=== PATIENT | male | born 1970 | race Caucasian/White ===

== ENCOUNTER 2017-01-06 09:51 | Day surgery (SDC) | payer MEDICAID ==
[~2017-01-06 09:51] MED LIST: Metoclopramide 10 MG/2 ML SDV IV PRN; Sodium Chloride 0.9% 1,000 ML IV SCH; Sodium Chloride 0.9% 10 ML Syringe FLUSH PRN
[2017-01-06] MEDS ORDERED: Propofol 1,000 MG/100 ML SDV ONE (12:30)
[2017-01-06 13:22] VITALS: BP 111/62
--- NOTE | 2017-01-06 16:41 | OR ---
DATE OF OPERATION: 01/06/2017 PREOPERATIVE DIAGNOSIS: Screening colonoscopy, increased risk for colon cancer. POSTOPERATIVE DIAGNOSIS: Normal colonoscopy. OPERATION: Screening colonoscopy, increased risk. COMPLICATIONS: None. DRAINS: None. SPECIMENS: None. ESTIMATED BLOOD LOSS: Zero. ANESTHESIA: General propofol anesthesia. INDICATION: Mr. Leach is a 46-year-old gentleman whose previous colonoscopy was 5 years ago. He has an increased risk for colon cancer as well as colonic polyps. The above- mentioned procedure was explained. The risks, benefits, and complications were explained. The patient understood and agreed and he was brought to the operating room. DESCRIPTION OF PROCEDURE: The patient was brought to the operating room and placed in left lateral decubitus position on the operating room table. Satisfactory general propofol anesthesia was administered. We began by performing a rectal examination, which was within normal limits. I then placed the endoscope by finger introduction into the rectum and subsequently advanced to the level of the cecum. The cecum was identified by the appendiceal orifice as well as the ileocecal valve and cecal strap. Next, careful evaluation of the mucosa was performed on withdrawal. There were no telangiectasias, no polyps, no neoplastic growths, and no diverticula. I then performed a retroflexion maneuver in the rectum, which was within normal limits. The colon was then decompressed and the endoscope was withdrawn. The prep was good and the views after lavage were good. There were no complications. Instrument count was correct. The patient was awoken in the OR and taken to the PACU for recovery. Recommend followup colonoscopy in 5 years. VERÓNICA /[id number]
== END 2017-01-06 13:26 | disposition home or self-care (01) ==
LOC: LB.SDS 09:51
PROVIDERS: ATTEND Surgery
DX: Z12.11 Encounter for screening for malignant neoplasm of colon (principal); Z80.0 Family history of malignant neoplasm of digestive organs
CPT/HCPCS: 45378; 96374; J7040; J7050; J3490

== ENCOUNTER 2017-02-20 15:42 | Inpatient (IN) | payer MEDICAID ==
[2017-02-20] MEDS ORDERED: THIAMINE IV ONE ×3 (16:10)
[2017-02-20] MEDS ORDERED: Magnesium Oxide 400 MG Tab PO ONE (16:10)
[2017-02-20] MEDS ORDERED: MVI IV ONE ×3 (16:10)
[2017-02-20] MEDS ORDERED: VITAMIN K IV ONE ×3 (16:10)
[2017-02-20] MEDS ORDERED: [UNRECOGNIZED DRUG - OTHER] IV ONE ×3 (16:10)
--- NOTE | 2017-02-20 16:14 | PCM.HP ---
H&P History of Present Illness - General Date of Service: 02/20/17 Admit Problem/Dx: Admission Diagnosis/Problem Admission Diagnosis/Problem Alcohol withdrawal syndrome Source of Information: Patient History Limitations: Reports: No Limitations - History of Present Illness Initial Comments - Free Text/Narative: This is a 46yo M who has been drinking heavily the past week but has been sober for over 1.5yrs. He would like to stop drinking but is starting to have symptoms when he stops drinking. He complaints of severe abdominal pain at this time but improves with alcohol for the past week. He has been under a lot of stress and has been working 2 jobs. He recently quit one job as it caused his rent to increase. He was paying child support for the past year and only the past few months ago went to court to reverse the decision as the kids live with him and he pays for everything. He is stressed about covering all his bills as his son has a trip with school and he has rent to pay. Duration of Symptoms: Reports: Intermittent, Waxing/Waning Location: Reports: Abdomen Quality: Reports: Ache, Stabbing Severity: Severe Improves with: Reports: Other (alcohol consumption) - Related Data Allergies/Adverse Reactions: Allergies Allergy/AdvReac Type Severity Reaction Status Date / Time No Known Allergies Allergy Verified 02/20/17 16:20 Home Medications: Home Meds Ibuprofen [Advil] 1 tab PO BID PRN 08/23/14 [History] Lisinopril/Hydrochlorothiazide [Lisinopril-Hctz 10-12.5 mg Tab] 1 each PO DAILY 08/24/15 [History] traMADol HCl [Tramadol HCl] 50 mg PO Q12HR PRN 08/24/15 [History] Past Medical History HEENT History: Reports: Other (See Below) Other HEENT History: High Blood pressure,Alcholic,Shoulder pain, Cardiovascular History: Reports: Hypertension Musculoskeletal History: Reports: Other (See Below) Other Musculoskeletal History: Right shoulder surgery and pain - Past Surgical History HEENT Surgical History: Reports: Other (See Below) Social & Family History - Family History GI: Reports: Other (See Below) Other GI Family History: significant colon hx - Tobacco Use Smoking Status *Q: Never Smoker - Alcohol Use Days Per Week of Alcohol Use: 7 Number of Drinks Per Day: 5 Total Drinks Per Week: 35 - Recreational Drug Use Recreational Drug Use: No H&P Review of Systems - Review of Systems: Review Of Systems: See Below General: Reports: No Symptoms HEENT: Reports: Other (right tooth pain) Pulmonary: Reports: No Symptoms Cardiovascular: Reports: No Symptoms Gastrointestinal: Reports: Abdominal Pain Genitourinary: Reports: No Symptoms Musculoskeletal: Reports: No Symptoms Skin: Reports: No Symptoms Psychiatric: Reports: Anxiety, Agitation Exam - Exam Exam: See Below - Vital Signs Weight: 112.945 kg - Exam General: Alert, Oriented, Cooperative HEENT: PERRLA, Conjunctiva Clear, EACs Clear, EOMI, Other (caries - right upper tooth pain) Neck: Supple, Trachea Midline Lungs: Clear to Auscultation, Normal Respiratory Effort Cardiovascular: Regular Rate, Regular Rhythm Abdomen: Normal Bowel Sounds, Soft, Pelvis Stable, Tenderness (mid epigastric) Extremities: Normal Inspection - Patient Data Result Diagrams: 02/20/17 16:24 02/20/17 16:24 *Q Meaningful Use (ADM) - VTE *Q VTE Criteria *Q: - Stroke *Q Stroke Criteria *Q: - AMI *Q AMI Criteria *Q: - Problem List (1) Nausea & vomiting SNOMED Code(s): 91598906 ICD Code: R11.2 - NAUSEA WITH VOMITING, UNSPECIFIED Status: Acute Priority: High Current Visit: Yes (2) Alcohol withdrawal SNOMED Code(s): 414877421 ICD Code: F10.239 - ALCOHOL DEPENDENCE WITH WITHDRAWAL, UNSPECIFIED Status : Acute Priority: High Current Visit: Yes (3) Abscessed tooth SNOMED Code(s): 945752091 ICD Code: K04.7 - PERIAPICAL ABSCESS WITHOUT SINUS Status: Acute Priority : High Current Visit: Yes (4) Alcohol abuse SNOMED Code(s): 16410665 ICD Code: F10.10 - ALCOHOL ABUSE, UNCOMPLICATED Status: Chronic Priority : High Current Visit: Yes Problem List Initiated/Reviewed/Updated: Yes Orders Last 24hrs: Active Orders 24 hr Category Date Time Status Patient Status [ADT] Routine ADT 02/20/17 16:09 Ordered CIWAA Assessment [RC] Q1H Care 02/20/17 16:10 Ordered Cardiac Monitoring [RC] .As Directed Care 02/20/17 16:10 Ordered Notify Provider [RC] PRN Care 02/20/17 16:10 Ordered Oxygen Therapy [RC] PRN Care 02/20/17 16:09 Ordered Regular Diet [DIET] Diet 02/20/17 Dinner Ordered CBC WITH AUTO DIFF [HEME] Stat Lab 02/20/17 16:10 Ordered COMPREHENSIVE METABOLIC PN,CMP [CHEM] Stat Lab 02/20/17 16:10 Ordered LORazepam [Ativan] Med 02/20/17 16:15 Ordered See Protocol IV ASDIRECTED MVI, Adult with Vitamin K [Infuvite Adult] 10 ml Med 02/20/17 16:10 Ordered Thiamine [Vitamin B-1] 100 mg D5%-0.9% NaCl w/ KCl 40 meq [D5 NS with 40 mEq KCl] 1, 000 ml IV ONETIME Magnesium Oxide Med 02/20/17 16:10 Once 400 mg PO ONETIME ONE Pantoprazole [ProTONIX IV] Med 02/20/17 16:15 Ordered 40 mg IV DAILY Sodium Chloride 0.9% [Saline Flush] Med 02/20/17 16:10 Ordered 10 ml FLUSH ASDIRECTED PRN Peripheral IV Insertion Adult [OM.PC] Routine Oth 02/20/17 16:10 Ordered Resuscitation Status Routine Resus Stat 02/20/17 16:09 Ordered Assessment/Plan Comment:: Patient placed on alcohol withdrawl protocol. Counseled patient. Discussed tooth abscess and will place on rocephin IV 1g. Telemetry and monitoring per CIWAA protocol.
[2017-02-20] MEDS: Sodium Chloride 0.9% 10 ML Syringe FLUSH PRN (16:43)
[2017-02-20] MEDS: Pantoprazole 40 MG Vial IV SCH (16:43)
[2017-02-20] MEDS: Ondansetron 4 MG/2 ML SDV ONE ×2 (17:38→17:39)
[2017-02-20] MEDS: Ondansetron 4 MG/2 ML SDV IVPUSH SCH ×2 (17:39→21:36)
[2017-02-20] MEDS ORDERED: cefTRIAXone 1 GM in Sodium Chloride 0.9% 50 ML IV ONE (17:50)
[2017-02-20] MEDS ORDERED: LORazepam 1 MG Tab ONE (21:43)
[2017-02-20] MEDS: LORazepam 2 MG/ML MDV IV SCH (21:46)
[2017-02-20] MEDS: Sodium Chloride 0.45% 1,000 ML IV SCH (22:15)
[2017-02-21] MEDS ORDERED: LORazepam 1 MG Tab ONE (01:24)
[2017-02-21] MEDS: Ondansetron 4 MG/2 ML SDV IVPUSH SCH ×4 (04:44→13:25)
[2017-02-21] MEDS: LORazepam 2 MG/ML MDV IV SCH (04:45)
[2017-02-21] MEDS: Sodium Chloride 0.45% 1,000 ML IV SCH (04:45)
[2017-02-21] MEDS: Pantoprazole 40 MG Vial IV SCH (07:36)
[2017-02-21] MEDS ORDERED: VITAMIN K IV SCH ×3 (08:00)
[2017-02-21] MEDS ORDERED: 1/2 NS W IV SCH ×3 (08:00)
[2017-02-21] MEDS ORDERED: THIAMINE IV SCH ×3 (08:00)
[2017-02-21] MEDS ORDERED: KCL IV SCH ×3 (08:00)
[2017-02-21] MEDS ORDERED: MVI IV SCH ×3 (08:00)
[2017-02-21] MEDS ORDERED: D5 IV SCH ×3 (08:00)
[2017-02-21] MEDS ORDERED: Aluminum Hydroxide/Magnesium Hydroxide/Simethicone Susp 30 ML Cup PO ONE (08:47)
[2017-02-21] MEDS: Aluminum Hydroxide/Magnesium Hydroxide/Simethicone Susp 30 ML Cup PO PRN ×2 (08:54→13:33)
[2017-02-21] MEDS: Sodium Chloride 0.9% 10 ML Syringe FLUSH PRN (09:43)
[2017-02-21 12:05] VITALS: BP 135/90
[2017-02-21] MEDS ORDERED: Ondansetron 4 MG Tab.DIS ONE (13:21)
[2017-02-21] MEDS ORDERED: Ondansetron 4 MG Tab.DIS PO PRN (13:22)
--- NOTE | 2017-02-21 15:02 | PCM.DCSUM1 ---
Discharge Summary - Discharge Data Discharge Date: 02/21/17 Discharge Disposition: Home, Self-Care 01 Condition: Good - Discharge Diagnosis/Problem(s) (1) Nausea & vomiting SNOMED Code(s): 48647430 ICD Code: R11.2 - NAUSEA WITH VOMITING, UNSPECIFIED Status: Acute Priority: High Current Visit: Yes (2) Alcohol withdrawal SNOMED Code(s): 006019064 ICD Code: F10.239 - ALCOHOL DEPENDENCE WITH WITHDRAWAL, UNSPECIFIED Status : Acute Priority: High Current Visit: Yes (3) Abscessed tooth SNOMED Code(s): 370961270 ICD Code: K04.7 - PERIAPICAL ABSCESS WITHOUT SINUS Status: Acute Priority : High Current Visit: Yes (4) Alcohol abuse SNOMED Code(s): 96262837 ICD Code: F10.10 - ALCOHOL ABUSE, UNCOMPLICATED Status: Chronic Priority : High Current Visit: Yes - Patient Instructions Diet: Usual Diet as Tolerated Driving: May Drive Today Showering/Bathing: May Shower Notify Provider of: Nausea and/or Vomiting - Discharge Plan Home Medications: Home Meds Ibuprofen [Advil] 1 tab PO BID PRN 08/23/14 [History] Lisinopril/Hydrochlorothiazide [Lisinopril-Hctz 10-12.5 mg Tab] 1 each PO DAILY 08/24/15 [History] traMADol HCl [Tramadol HCl] 50 mg PO Q12HR PRN 08/24/15 [History] Patient Handouts: Alcohol Withdrawal - Discharge Summary/Plan Comment Discharge Summary/Plan Comment: Counseled on alcohol cessation, support groups, AA and family support. Discussed follow up in clinic for EGD scheduling and discussion. Patient sent home with nexium, Rx sent of Zofran and Ativan sent to [facility]. Patient agrees with alcohol cessation and follow up. - Patient Data Vitals - Most Recent: Last Vital Signs Temp 36.8 C 02/21/17 12:00 Pulse 78 02/21/17 12:00 Resp 15 02/21/17 12:00 BP 135/90 02/21/17 12:00 Pulse Ox 98 02/21/17 12:00 Weight - Most Recent: 113.398 kg I&O - Last 24 hours: Intake & Output 02/21/17 02/21/17 02/21/17 06:59 14:59 22:59 Intake Total 1060 Balance 1060 Lab Results - Last 24 hrs: Laboratory Results - last 24 hr 02/20/17 02/20/17 02/20/17 Range/Units 16:24 16:24 16:24 WBC 9.0 (4.0-11.0) K/uL RBC 4.91 (4.50-6.50) M/uL Hgb 14.6 (13.0-18.0) g/dL Hct 41.7 (40.0-54.0) % MCV 85 (76-96) fL MCH 29.7 (27.0-32.0) pg MCHC 35.0 (31.0-35.0) g/dL RDW 13.5 (11.0-16.0) % Plt Count 225 (150-400) K/uL MPV 9.5 (6.0-10.0) fL Neut % (Auto) 64.2 (45.0-70.0) % Lymph % (Auto) 27.1 (20.0-40.0) % [place] % (Auto) 7.3 (3.0-10.0) % Eos % (Auto) 1.0 (1.0-5.0) % Baso % (Auto) 0.4 (0.0-0.5) % Neut # (Auto) 5.79 (2.00-7.50) K/uL Lymph # (Auto) 2.44 (1.50-4.00) K/uL [place] # (Auto) 0.66 (0.20-0.80) K/uL Eos # (Auto) 0.09 (0.04-0.40) K/uL Baso # (Auto) 0.04 (0.02-0.10) K/uL Sodium 147 H (136-145) mmol/L Potassium 4.1 (3.5-5.1) mmol/L Chloride 108 H (98-107) mmol/L Carbon Dioxide 30.6 (21.0-32.0) mmol/L Anion Gap 12.5 (5.0-15.0) mmol/L BUN 12 (8-26) mg/dL Creatinine 1.00 (0.70-1.30) mg/dL Est Cr Clr Drug Dosing 99.35 mL/min Estimated GFR (MDRD) > 60 (>60) MLS/MIN BUN/Creatinine Ratio 12.0 (6-25) Glucose 111 H (74-100) mg/dL Calcium 8.3 L (8.5-10.1) mg/dL Total Bilirubin 0.6 (0.0-1.0) mg/dL AST 24 (15-37) U/L ALT 34 (12-78) U/L Alkaline Phosphatase 67 (46-116) U/L Total Protein 7.2 (6.4-8.2) g/dL Albumin 3.5 (3.4-5.0) g/dL Globulin 3.7 (2.2-4.2) g/dL Albumin/Globulin Ratio 0.9 (0.8-2.0) Ethyl Alcohol 196.0 H (0.0-0.0) mg/dL Med Orders - Current: Current Medications Al Hydroxide/Mg Hydroxide (Mag-Al Plus) 30 ml PO Q4H PRN PRN Reason: Abdominal Pain Last Admin: 02/21/17 13:33 Dose: 30 ml Multivitamins/Minerals 10 ml/Thiamine HCl 100 mg/ Potassium Chloride/Dextrose/ Sod Cl 1,011 mls @ 250 mls/hr IV DAILY [facility] Last Admin: 02/21/17 08:58 Dose: 250 mls/hr Sodium Chloride (Sodium Chloride 0.45%) 1,000 mls @ 150 mls/hr IV ASDIRECTED [facility] Last Admin: 02/21/17 04:45 Dose: 150 mls/hr Lorazepam (Ativan) 0 mg IV ASDIRECTED TD PRN Reason: Protocol Last Admin: 02/21/17 04:45 Dose: 1 mg Ondansetron HCl (Zofran) 4 mg IVPUSH Q4H [facility] Last Admin: 02/21/17 13:25 Dose: Not Given Ondansetron HCl (Zofran Odt) 4 mg PO Q4H PRN PRN Reason: Nausea/Vomiting Last Admin: 02/21/17 13:25 Dose: 4 mg Pantoprazole Sodium (Protonix Iv) 40 mg IV DAILY [facility] Last Admin: 02/21/17 07:36 Dose: 40 mg Sodium Chloride (Saline Flush) 10 ml FLUSH ASDIRECTED PRN PRN Reason: Keep Vein Open Last Admin: 02/21/17 09:43 Dose: 10 ml Discontinued Medications Al Hydroxide/Mg Hydroxide (Mag-Al Plus) 30 ml PO ONETIME ONE Stop: 02/21/17 08:48 Last Admin: 02/21/17 12:06 Dose: Not Given Multivitamins/Minerals 10 ml/Thiamine HCl 100 mg/ Potassium Chloride/Dextrose/ Sod Cl 1,011 mls @ 250 mls/hr IV ONETIME ONE Stop: 02/20/17 16:12 Last Admin: 02/20/17 16:58 Dose: 250 mls/hr Ceftriaxone Sodium 1 gm/ (Sodium Chloride) 50 mls @ 200 mls/hr IV ONETIME ONE Stop: 02/20/17 18:04 Last Admin: 02/20/17 19:01 Dose: 200 mls/hr Lorazepam (Ativan) Confirm Administered Dose 1 mg .ROUTE .STK-MED ONE Stop: 02/20/17 21:44 Last Admin: 02/20/17 21:49 Dose: Not Given Lorazepam (Ativan) Confirm Administered Dose 1 mg .ROUTE .STK-MED ONE Stop: 02/21/17 01:25 Last Admin: 02/21/17 04:44 Dose: Not Given Magnesium Oxide (Magnesium Oxide) 400 mg PO ONETIME ONE Stop: 02/20/17 16:11 Last Admin: 02/20/17 16:43 Dose: 400 mg Ondansetron HCl (Zofran) Confirm Administered Dose 4 mg .ROUTE .STK-MED ONE Stop: 02/20/17 17:30 Last Admin: 02/20/17 17:39 Dose: Not Given Ondansetron HCl (Zofran Odt) Confirm Administered Dose 4 mg .ROUTE .STK-MED ONE Stop: 02/21/17 13:22 Last Admin: 02/21/17 13:31 Dose: Not Given *Q Meaningful Use (DIS) - VTE *Q VTE Criteria *Q: - Stroke *Q Stroke Criteria *Q: - AMI *Q AMI Criteria *Q:
== END 2017-02-21 15:25 | disposition home or self-care (01) | DRG 775 ==
LOC: UNDOADMIN 15:42 → LB.MS 15:42
PROVIDERS: ADMIT Family Medicine; ATTEND Family Medicine
DX: F10.239 Alcohol dependence with withdrawal, unspecified (principal); Y90.6 Blood alcohol level of 120-199 mg/100 ml; K04.7 Periapical abscess without sinus; I10 Essential (primary) hypertension; R11.2 Nausea with vomiting, unspecified
CPT/HCPCS: 36415; 80053; 85025; A9270-GY; C9113; G0480; J0696; J2060; J2405; J3411; J3480; J3490; J7050

== ENCOUNTER 2017-03-29 14:24 | Inpatient (IN) | payer MEDICAID ==
[2017-03-29] MEDS ORDERED: GI Cocktail Oral Solution 30 ML PO ONE (14:59)
[2017-03-29] MEDS ORDERED: Ondansetron 4 MG Tab.DIS PO PRN (15:00)
[2017-03-29] MEDS ORDERED: MVI, Adult with Vitamin K 10 ML, Thiamine 100 MG, Folic Acid 1 MG, Magnesium Sulfate 3 ... IV SCH ×5 (15:00)
[2017-03-29] MEDS ORDERED: Pantoprazole 40 MG Vial IVPUSH SCH (15:15)
--- NOTE | 2017-03-29 15:20 | PCM.HP ---
H&P History of Present Illness - General Date of Service: 03/29/17 Admit Problem/Dx: Admission Diagnosis/Problem Admission Diagnosis/Problem Gastrointestinal hemorrhage Source of Information: Patient History Limitations: Reports: No Limitations, Intoxication - History of Present Illness Initial Comments - Free Text/Narative: This is a 47yo M who presented to the clinic for severe epigastric pain, vomiting, and hematemesis. He had started drinking the past few days due to stress and the ex . Patient states his daughter called his ex- because he has been drinking. Patient denies any chest pain or sob and has had hematemesis for the past 12 hours intermittently and mild streaks in his vomitus. He has right lower teeth pain and unable to get to a dentist as his insurance only approves of dentists out of town. Onset of Symptoms: Reports: Gradual Duration of Symptoms: Reports: Day(s): Quality: Reports: Same as Previous Episode Severity: Moderate Associated Symptoms: Reports: Nausea/Vomiting Right Abdomen Pain Score (Numeric/FACES): 10 - Related Data Allergies/Adverse Reactions: Allergies Allergy/AdvReac Type Severity Reaction Status Date / Time No Known Allergies Allergy Verified 02/20/17 16:20 Home Medications: Home Meds Ibuprofen [Advil] 1 tab PO BID PRN 08/23/14 [History] Lisinopril/Hydrochlorothiazide [Lisinopril-Hctz 10-12.5 mg Tab] 1 each PO DAILY 08/24/15 [History] traMADol HCl [Tramadol HCl] 50 mg PO Q12HR PRN 08/24/15 [History] Past Medical History HEENT History: Reports: Other (See Below) Other HEENT History: High Blood pressure,Alcholic,Shoulder pain, Cardiovascular History: Reports: Hypertension Gastrointestinal History: Reports: GERD Musculoskeletal History: Reports: Other (See Below) Other Musculoskeletal History: Right shoulder surgery and pain Psychiatric History: Reports: Addiction Endocrine/Metabolic History: Reports: Other (See Below) Other Endocrine/Metabolic History: states "borderline diabetic" - Past Surgical History HEENT Surgical History: Reports: Other (See Below) GI Surgical History: Reports: Appendectomy, Colonoscopy Social & Family History - Family History GI: Reports: Other (See Below) Other GI Family History: significant colon hx Psychiatric: Reports: Other (See Below) Other Psychiatric Family History: alcoholism - Tobacco Use Smoking Status *Q: Never Smoker - Caffeine Use Caffeine Use: Reports: Soda - Alcohol Use Days Per Week of Alcohol Use: 7 Number of Drinks Per Day: 10 Total Drinks Per Week: 70 - Recreational Drug Use Recreational Drug Use: No H&P Review of Systems - Review of Systems: Review Of Systems: ROS reveals no pertinent complaints other than HPI. Exam - Exam Exam: See Below - Vital Signs Weight: 113.398 kg - Exam General: Alert, Oriented, Other (intoxicated) HEENT: PERRLA, Conjunctiva Clear, EOMI, Pupils Reactive (sluggish) Neck: Supple, Trachea Midline Lungs: Clear to Auscultation, Normal Respiratory Effort Cardiovascular: Regular Rhythm, Tachycardia GI/Abdominal Exam: Abnormal Bowel Sounds (slightly hyperactive) Back Exam: Normal Inspection Extremities: Normal Inspection Peripheral Pulses: 2+: Dorsalis Pedis (L), Dorsalis Pedis (R) Skin: Warm, Dry, Intact Neurological: Cranial Nerves Intact, Reflexes Equal Bilateral - Patient Data Lab Results Last 24 hrs: Laboratory Results - last 24 hr 03/29/17 Range/Units 14:56 WBC 15.8 H D (4.0-11.0) K/uL RBC 5.67 (4.50-6.50) M/uL Hgb 17.0 (13.0-18.0) g/dL Hct 47.8 (40.0-54.0) % MCV 84 (76-96) fL MCH 30.0 (27.0-32.0) pg MCHC 35.6 H (31.0-35.0) g/dL RDW 13.8 (11.0-16.0) % Plt Count 328 D (150-400) K/uL MPV 9.7 (6.0-10.0) fL Neut % (Auto) 70.8 H (45.0-70.0) % Lymph % (Auto) 20.5 (20.0-40.0) % Will % (Auto) 8.2 (3.0-10.0) % Eos % (Auto) 0.3 L (1.0-5.0) % Baso % (Auto) 0.2 (0.0-0.5) % Neut # (Auto) 11.19 H (2.00-7.50) K/uL Lymph # (Auto) 3.24 (1.50-4.00) K/uL Will # (Auto) 1.29 H (0.20-0.80) K/uL Eos # (Auto) 0.04 (0.04-0.40) K/uL Baso # (Auto) 0.03 (0.02-0.10) K/uL Result Diagrams: 03/29/17 14:56 *Q Meaningful Use (ADM) - VTE *Q VTE Criteria *Q: - Stroke *Q Stroke Criteria *Q: - AMI *Q AMI Criteria *Q: - Problem List (1) Abscessed tooth SNOMED Code(s): 138538246 ICD Code: K04.7 - PERIAPICAL ABSCESS WITHOUT SINUS Status: Acute Priority : High Current Visit: Yes (2) Alcohol withdrawal SNOMED Code(s): 970823258 ICD Code: F10.239 - ALCOHOL DEPENDENCE WITH WITHDRAWAL, UNSPECIFIED Status : Acute Priority: High Current Visit: Yes (3) Hematemesis SNOMED Code(s): 9937059 ICD Code: K92.0 - HEMATEMESIS Status: Acute Priority: High Current Visit: Yes Onset Date: 08/23/14 Problem Details: 08/23/14 - Diarrhea, Vomiting, Melena, Hematemesis, Erosive esophagitis. (4) Nausea & vomiting SNOMED Code(s): 15818715 ICD Code: R11.2 - NAUSEA WITH VOMITING, UNSPECIFIED Status: Acute Priority: High Current Visit: Yes Qualifiers: Vomiting type: hematemesis Qualified Code(s): K92.0 - Hematemesis; R11.0 - Nausea (5) Alcohol abuse SNOMED Code(s): 29502906 ICD Code: F10.10 - ALCOHOL ABUSE, UNCOMPLICATED Status: Chronic Priority : High Current Visit: Yes Problem List Initiated/Reviewed/Updated: Yes Orders Last 24hrs: Active Orders 24 hr Category Date Time Status Patient Status [ADT] Routine ADT 03/29/17 14:57 Ordered Notify Provider [RC] PRN Care 03/29/17 15:00 Ordered Oxygen Therapy [RC] PRN Care 03/29/17 14:57 Ordered Vital Signs [RC] Q4H Care 03/29/17 14:57 Ordered Heart Healthy Diet [DIET] Diet 03/29/17 Dinner Ordered ALANINE AMINOTRANSFERASE,ALT [CHEM] Routine Lab 03/29/17 14:56 Ordered ALKALINE PHOSPHATASE [CHEM] Routine Lab 03/29/17 14:56 Ordered ASPARTATE AMNIOTRANSFERASE,AST [CHEM] Routine Lab 03/29/17 14:56 Ordered BASIC METABOLIC PANEL,BMP [CHEM] Stat Lab 03/29/17 14:56 Ordered H.PYLORI ANTIGEN, STOOL [OP] Routine Lab 03/29/17 15:14 Uncollected LIPASE [CHEM] Routine Lab 03/29/17 14:56 Ordered Amoxicillin/Clavulanate K [Augmentin 875 MG/125 MG] Med 03/29/17 20:00 Ordered 1 tab PO Q12HR LORazepam [Ativan] Med 03/29/17 15:00 Ordered See Protocol PO ASDIRECTED MVI, Adult with Vitamin K [Infuvite Adult] 10 ml Med 03/29/17 15:00 Ordered Thiamine [Vitamin B-1] 100 mg Folic Acid 1 mg Magnesium Sulfate [Magnesium Sulfate 50%] 3 gm Sodium Chloride 0.9% [Normal Saline] 1,000 ml IV ASDIRECTED Ondansetron [Zofran ODT] Med 03/29/17 15:00 Ordered 4 mg PO Q4H PRN Pantoprazole [ProTONIX IV] Med 03/29/17 15:15 Active 80 mg IVPUSH ASDIRECTED Sodium Chloride 0.9% [Saline Flush] Med 03/29/17 15:00 Ordered 10 ml FLUSH ASDIRECTED PRN oxyCODONE Med 03/29/17 14:57 Ordered 5 mg PO Q4H PRN Peripheral IV Insertion Adult [OM.PC] Urgent Oth 03/29/17 15:00 Ordered Medication Orders Amoxicillin/Clavulanate Potassium (Augmentin 875 Mg/125 Mg) 1 tab PO Q12HR TD Stop: 04/08/17 20:01 Multivitamins/Minerals 10 ml/Thiamine HCl 100 mg/ Folic Acid 1 mg/ Magnesium Sulfate 3 gm/ Sodium Chloride 1,017.2 mls @ 100 mls/hr IV ASDIRECTED TD Lorazepam (Ativan) 0 mg PO ASDIRECTED TD PRN Reason: Protocol Ondansetron HCl (Zofran Odt) 4 mg PO Q4H PRN PRN Reason: Nausea/Vomiting Oxycodone HCl (Oxycodone) 5 mg PO Q4H PRN PRN Reason: Pain Pantoprazole Sodium (Protonix Iv) 80 mg IVPUSH ASDIRECTED TD Stop: 03/29/17 16:00 Sodium Chloride (Saline Flush) 10 ml FLUSH ASDIRECTED PRN PRN Reason: Keep Vein Open Assessment/Plan Comment:: Patient admitted from clinic. Placed on telemetry. CIWAA protocol. Augmentin for tooth abscess. Oxycodone for breakthrough pain. F/u labs. GI cocktail and prophylactic protonix. Banana Bag. Patient counseled on medications and gentle hydration while monitoring for further hematemesis and zofran for nausea.
[2017-03-29] MEDS: oxyCODONE 5 MG Tab PO PRN ×2 (15:43→20:13)
[2017-03-29] MEDS: Amoxicillin/Clavulanate K 875-125 MG Tab PO SCH ×2 (15:53→20:11)
[2017-03-29] MEDS: LORazepam 1 MG Tab PO SCH ×3 (17:46→23:15)
[2017-03-29] MEDS ORDERED: GI Cocktail Oral Solution 30 ML PO PRN (17:57)
[2017-03-30] MEDS: LORazepam 1 MG Tab PO SCH ×2 (03:30→23:01)
[2017-03-30] MEDS ORDERED: Octreotide 100 MCG/ML SDV SUBCUT SCH (08:00)
[2017-03-30] MEDS: Amoxicillin/Clavulanate K 875-125 MG Tab PO SCH (08:19)
[2017-03-30] MEDS: oxyCODONE 5 MG Tab PO PRN ×3 (08:27→23:02)
[2017-03-30] MEDS ORDERED: Octreotide 50 MCG/1 ML Amp IVPUSH ONE (11:02)
--- NOTE | 2017-03-30 11:07 | PCM.PN ---
- General Info Date of Service: 03/30/17 Functional Status: Reports: Pain Controlled, Tolerating Diet - Review of Systems General: Reports: No Symptoms HEENT: Reports: No Symptoms Pulmonary: Reports: No Symptoms Cardiovascular: Reports: No Symptoms Gastrointestinal: Reports: Abdominal Pain, Decreased Appetite Genitourinary: Reports: No Symptoms Musculoskeletal: Reports: No Symptoms Skin: Reports: No Symptoms Neurological: Reports: Tremors Psychiatric: Reports: Anxiety - Patient Data Vitals - Most Recent: Last Vital Signs Temp 36.2 C 03/30/17 11:00 Pulse 91 03/30/17 11:00 Resp 15 03/30/17 11:00 BP 135/93 H 03/30/17 11:00 Pulse Ox 96 03/30/17 11:00 Weight - Most Recent: 113.398 kg I&O - Last 24 Hours: Intake & Output 03/29/17 03/30/17 03/30/17 22:59 06:59 14:59 Intake Total 1120 Output Total 600 Balance 520 Lab Results Last 24 Hours: Laboratory Results - last 24 hr 03/29/17 03/29/17 03/29/17 Range/Units 14:56 14:56 14:56 WBC 15.8 H D (4.0-11.0) K/uL RBC 5.67 (4.50-6.50) M/uL Hgb 17.0 (13.0-18.0) g/dL Hct 47.8 (40.0-54.0) % MCV 84 (76-96) fL MCH 30.0 (27.0-32.0) pg MCHC 35.6 H (31.0-35.0) g/dL RDW 13.8 (11.0-16.0) % Plt Count 328 D (150-400) K/uL MPV 9.7 (6.0-10.0) fL Neut % (Auto) 70.8 H (45.0-70.0) % Lymph % (Auto) 20.5 (20.0-40.0) % Pettis % (Auto) 8.2 (3.0-10.0) % Eos % (Auto) 0.3 L (1.0-5.0) % Baso % (Auto) 0.2 (0.0-0.5) % Neut # (Auto) 11.19 H (2.00-7.50) K/uL Lymph # (Auto) 3.24 (1.50-4.00) K/uL Pettis # (Auto) 1.29 H (0.20-0.80) K/uL Eos # (Auto) 0.04 (0.04-0.40) K/uL Baso # (Auto) 0.03 (0.02-0.10) K/uL Sodium 143 (136-145) mmol/L Potassium 4.1 (3.5-5.1) mmol/L Chloride 103 (98-107) mmol/L Carbon Dioxide 27.8 (21.0-32.0) mmol/L Anion Gap 16.3 H (5.0-15.0) mmol/L BUN 10 (8-26) mg/dL Creatinine 0.97 (0.70-1.30) mg/dL Est Cr Clr Drug Dosing 101.35 mL/min Estimated GFR (MDRD) > 60 (>60) MLS/MIN BUN/Creatinine Ratio 10.3 (6-25) Glucose 145 H D (74-100) mg/dL Calcium 8.8 (8.5-10.1) mg/dL AST 32 (15-37) U/L ALT 52 (12-78) U/L Alkaline Phosphatase 82 (46-116) U/L Lipase 92 D (73-393) U/L /17/17 Range/Units 07:15 WBC 12.2 H D (4.0-11.0) K/uL RBC 4.89 (4.50-6.50) M/uL Hgb 14.9 (13.0-18.0) g/dL Hct 42.3 (40.0-54.0) % MCV 87 (76-96) fL MCH 30.5 (27.0-32.0) pg MCHC 35.2 H (31.0-35.0) g/dL RDW 13.9 (11.0-16.0) % Plt Count 232 D (150-400) K/uL MPV 9.7 (6.0-10.0) fL Neut % (Auto) 69.5 (45.0-70.0) % Lymph % (Auto) 18.5 L (20.0-40.0) % Pettis % (Auto) 10.8 H (3.0-10.0) % Eos % (Auto) 0.7 L (1.0-5.0) % Baso % (Auto) 0.5 (0.0-0.5) % Neut # (Auto) 8.45 H (2.00-7.50) K/uL Lymph # (Auto) 2.25 (1.50-4.00) K/uL Pettis # (Auto) 1.31 H (0.20-0.80) K/uL Eos # (Auto) 0.08 (0.04-0.40) K/uL Baso # (Auto) 0.06 (0.02-0.10) K/uL Sodium (136-145) mmol/L Potassium (3.5-5.1) mmol/L Chloride (98-107) mmol/L Carbon Dioxide (21.0-32.0) mmol/L Anion Gap (5.0-15.0) mmol/L BUN (8-26) mg/dL Creatinine (0.70-1.30) mg/dL Est Cr Clr Drug Dosing mL/min Estimated GFR (MDRD) (>60) MLS/MIN BUN/Creatinine Ratio (6-25) Glucose (74-100) mg/dL Calcium (8.5-10.1) mg/dL AST (15-37) U/L ALT (12-78) U/L Alkaline Phosphatase (46-116) U/L Lipase (73-393) U/L Med Orders - Current: Current Medications Al Hydroxide/Mg Hydroxide (Gi Cocktail) 30 ml PO BID PRN PRN Reason: Abdominal Pain Last Admin: 03/30/17 03:16 Dose: 30 ml Amoxicillin/Clavulanate Potassium (Augmentin 875 Mg/125 Mg) 1 tab PO Q12HR TD Stop: 04/08/17 20:01 Last Admin: 03/30/17 08:19 Dose: 1 tab Multivitamins/Minerals 10 ml/Thiamine HCl 100 mg/ Folic Acid 1 mg/ Magnesium Sulfate 3 gm/ Sodium Chloride 1,017.2 mls @ 100 mls/hr IV ASDIRECTED TD Last Admin: 03/29/17 15:36 Dose: 100 mls/hr Lorazepam (Ativan) 0 mg PO ASDIRECTED TD PRN Reason: Protocol Last Admin: 03/30/17 03:30 Dose: 1 mg Ondansetron HCl (Zofran Odt) 4 mg PO Q4H PRN PRN Reason: Nausea/Vomiting Last Admin: 03/29/17 15:43 Dose: 4 mg Oxycodone HCl (Oxycodone) 5 mg PO Q4H PRN PRN Reason: Pain Last Admin: 03/30/17 08:27 Dose: 5 mg Ranitidine HCl (Zantac) 150 mg PO BID TD Last Admin: 03/30/17 08:19 Dose: 150 mg Sodium Chloride (Saline Flush) 10 ml FLUSH ASDIRECTED PRN PRN Reason: Keep Vein Open Discontinued Medications Al Hydroxide/Mg Hydroxide (Gi Cocktail) 30 ml PO ONETIME ONE Stop: 03/29/17 15:00 Last Admin: 03/29/17 15:53 Dose: 30 ml Pantoprazole Sodium (Protonix Iv) 80 mg IVPUSH ASDIRECTED TD Stop: 03/29/17 16:00 Last Admin: 03/29/17 15:37 Dose: 80 mg - Exam General: Alert, Oriented, Cooperative, Mild Distress HEENT: Pupils Equal, Pupils Reactive Neck: Supple Lungs: Clear to Auscultation, Normal Respiratory Effort Cardiovascular: Regular Rhythm, Tachycardia GI/Abdominal Exam: Abnormal Bowel Sounds (hyperactive) Extremities: Normal Inspection - Problem List & Annotations (1) Abscessed tooth SNOMED Code(s): 029596523 Code(s): K04.7 - PERIAPICAL ABSCESS WITHOUT SINUS Status: Acute Priority : High Current Visit: Yes (2) Alcohol withdrawal SNOMED Code(s): 683508271 Code(s): F10.239 - ALCOHOL DEPENDENCE WITH WITHDRAWAL, UNSPECIFIED Status: Acute Priority: High Current Visit: Yes (3) Hematemesis SNOMED Code(s): 7036164 Code(s): K92.0 - HEMATEMESIS Status: Acute Priority: High Current Visit : Yes Onset Date: 08/23/14 Annotation/Comment:: 08/23/14 - Diarrhea, Vomiting , Melena, Hematemesis, Erosive esophagitis. (4) Nausea & vomiting SNOMED Code(s): 04022592 Code(s): R11.2 - NAUSEA WITH VOMITING, UNSPECIFIED Status: Acute Priority : High Current Visit: Yes Qualifiers: Vomiting type: hematemesis Qualified Code(s): K92.0 - Hematemesis; R11.0 - Nausea (5) Alcohol abuse SNOMED Code(s): 02929141 Code(s): F10.10 - ALCOHOL ABUSE, UNCOMPLICATED Status: Chronic Priority: High Current Visit: Yes (6) Depression SNOMED Code(s): 47377692 Code(s): F32.9 - MAJOR DEPRESSIVE DISORDER, SINGLE EPISODE, UNSPECIFIED Status: Chronic Priority: High Current Visit: Yes Qualifiers: Active/Remission status: currently active Major depression episode severity : moderate - Problem List Review Problem List Initiated/Reviewed/Updated: Yes - My Orders Last 24 Hours: My Active Orders 03/29/17 14:57 Patient Status [ADT] Routine Oxygen Therapy [RC] PRN Vital Signs [RC] Q4H oxyCODONE 5 mg PO Q4H PRN 03/29/17 15:00 Notify Provider [RC] PRN LORazepam [Ativan] See Protocol PO ASDIRECTED MVI, Adult with Vitamin K [Infuvite Adult] 10 ml Thiamine [Vitamin B-1] 100 mg Folic Acid 1 mg Magnesium Sulfate [Magnesium Sulfate 50%] 3 gm Sodium Chloride 0.9% [Normal Saline] 1,000 ml IV ASDIRECTED Ondansetron [Zofran ODT] 4 mg PO Q4H PRN Sodium Chloride 0.9% [Saline Flush] 10 ml FLUSH ASDIRECTED PRN Peripheral IV Insertion Adult [OM.PC] Urgent 03/29/17 15:14 H.PYLORI ANTIGEN, STOOL [OP] Routine 03/29/17 16:00 CULTURE MRSA SURVEY [RM] Routine 03/29/17 16:12 Telemetry Monitoring [Cardiac Monitoring] [RC] .As Directed 03/29/17 17:57 GI Cocktail 30 ml PO BID PRN 03/29/17 18:00 Ranitidine [Zantac] 150 mg PO BID 03/29/17 20:00 Amoxicillin/Clavulanate K [Augmentin 875 MG/125 MG] 1 tab PO Q12HR 03/29/17 Dinner Heart Healthy Diet [DIET] 03/30/17 11:02 Octreotide [SandoSTATIN] 50 mcg IVPUSH BOLUS ONE - Plan Plan:: Patient admitted from clinic. Placed on telemetry. CRISTIWAA protocol. Augmentin for tooth abscess. Oxycodone for breakthrough pain. F/u labs. GI cocktail and prophylactic protonix. Banana Bag. Patient counseled on medications and gentle hydration while monitoring for further hematemesis and zofran for nausea. 03/30 We will continue current management. Discussed Alcohol support and coping skills in length. Discussed use of Octreotide and will start as we now have some in stock. Patient will be started on effexor and monitored. Discussed medication side effects, risks and benefits.
[2017-03-30] MEDS: Sodium Chloride 0.9% 10 ML Syringe FLUSH PRN ×2 (11:11→11:49)
[2017-03-30] MEDS: Aluminum Hydroxide/Magnesium Hydroxide/Simethicone Susp 30 ML Cup PO SCH ×2 (11:13→20:06)
[2017-03-30] MEDS ORDERED: Venlafaxine 37.5 MG Cap.ER PO SCH (11:15)
[2017-03-30] MEDS: Octreotide 100 MCG/ML SDV SUBCUT SCH ×2 (11:47→20:58)
[2017-03-30] MEDS: Lisinopril 10 MG Tab PO SCH (13:54)
[2017-03-30] MEDS: Venlafaxine 37.5 MG Cap.ER PO SCH (15:24)
[2017-03-30] MEDS ORDERED: Omeprazole 40 MG Cap.CR ONE (15:51)
[2017-03-30] MEDS ORDERED: Amoxicillin 500 MG Cap ONE (15:51)
[2017-03-30] MEDS: Omeprazole 40 MG Cap.CR PO SCH ×2 (15:56→19:11)
[2017-03-30] MEDS: Amoxicillin 500 MG Cap PO SCH ×2 (15:57→19:10)
[2017-03-31] MEDS: Omeprazole 40 MG Cap.CR PO SCH (07:10)
[2017-03-31] MEDS: Aluminum Hydroxide/Magnesium Hydroxide/Simethicone Susp 30 ML Cup PO SCH (09:06)
[2017-03-31] MEDS: Amoxicillin 500 MG Cap PO SCH (09:07)
[2017-03-31] MEDS: Lisinopril 10 MG Tab PO SCH (09:07)
[2017-03-31] MEDS: Octreotide 100 MCG/ML SDV SUBCUT SCH (09:11)
[2017-03-31 09:20] VITALS: BP 122/80
[2017-03-31] MEDS: Venlafaxine 37.5 MG Cap.ER PO SCH (09:20)
--- NOTE | 2017-03-31 11:22 | PCM.DCSUM1 ---
Discharge Summary - Discharge Data Discharge Date: 03/31/17 Discharge Disposition: Home, Self-Care 01 Condition: Good - Discharge Diagnosis/Problem(s) (1) Abscessed tooth SNOMED Code(s): 624019002 ICD Code: K04.7 - PERIAPICAL ABSCESS WITHOUT SINUS Status: Acute Priority : High Current Visit: Yes (2) Alcohol withdrawal SNOMED Code(s): 443539907 ICD Code: F10.239 - ALCOHOL DEPENDENCE WITH WITHDRAWAL, UNSPECIFIED Status : Acute Priority: High Current Visit: Yes (3) Hematemesis SNOMED Code(s): 2464196 ICD Code: K92.0 - HEMATEMESIS Status: Acute Priority: High Current Visit: Yes Onset Date: 08/23/14 Problem Details: 08/23/14 - Diarrhea, Vomiting, Melena, Hematemesis, Erosive esophagitis. (4) Nausea & vomiting SNOMED Code(s): 76202278 ICD Code: R11.2 - NAUSEA WITH VOMITING, UNSPECIFIED Status: Acute Priority: High Current Visit: Yes Qualifiers: Vomiting type: hematemesis Qualified Code(s): K92.0 - Hematemesis; R11.0 - Nausea (5) Alcohol abuse SNOMED Code(s): 46570806 ICD Code: F10.10 - ALCOHOL ABUSE, UNCOMPLICATED Status: Chronic Priority : High Current Visit: Yes (6) Depression SNOMED Code(s): 62306839 ICD Code: F32.9 - MAJOR DEPRESSIVE DISORDER, SINGLE EPISODE, UNSPECIFIED Status: Chronic Priority: High Current Visit: Yes Qualifiers: Active/Remission status: currently active Major depression episode severity : moderate - Patient Instructions Diet: Regular Diet as Tolerated - Discharge Plan Home Medications: Home Meds Lisinopril/Hydrochlorothiazide [Lisinopril-Hctz 10-12.5 mg Tab] 1 each PO DAILY 08/24/15 [History] traMADol HCl [Tramadol HCl] 50 mg PO Q12HR PRN 08/24/15 [History] Amoxicillin [Amoxil] 1,000 mg PO Q12HR cap 03/31/17 [Rx] Clarithromycin [Biaxin] 500 mg PO BID tablet 03/31/17 [Rx] Lisinopril [Prinivil] 10 mg PO DAILY tablet 03/31/17 [Rx] Omeprazole 80 mg PO BIDAC cap.cr 03/31/17 [Rx] Venlafaxine [Effexor XR] 37.5 mg PO WITHBREAKFAST cap.er 03/31/17 [Rx] Patient Handouts: Alcohol Use Disorder, Alcohol Intoxication, [id number], Helicobacter Pylori Antibodies Test, Finding Treatment for Addiction - Discharge Summary/Plan Comment DC Time >30 min.: Yes Discharge Summary/Plan Comment: Discussion of depression and management with initiation of Effexor 37.5mg daily ER and f/u in Clinic. Patient also diagnosed with H. pylori and started triple therapy treatment that was sent to [facility]. Patient counseled on AA and coping skills and close f/u and monitoring. He will have to go to rehab for 30 days and AA and stay sober for 30 days in order to return to work. Patient will check with the city for options and if any issues will contact the clinic for further rehab facilities. F/u this next week in clinic and continue cessation of alcohol and guidance groups, AA and start rehab. Patient is very agreeable and would like to change this dependence problem. - Patient Data Vitals - Most Recent: Last Vital Signs Temp 36.6 C 03/31/17 07:00 Pulse 72 03/31/17 07:00 Resp 16 03/31/17 07:00 BP 122/80 03/31/17 09:07 Pulse Ox 97 03/31/17 07:00 Weight - Most Recent: 113.398 kg MEHNAZ Results - Last 24 hrs: Microbiology 03/30/17 13:30 Helicobacter pylori Antigen - Final Stool / Feces Positive H Pylori Ag 03/29/17 16:00 MRSA Surveillance Culture - Final Nares, Unspecified NO MRSA ISOLATED Med Orders - Current: Current Medications Al Hydroxide/Mg Hydroxide (Gi Cocktail) 30 ml PO BID PRN PRN Reason: Abdominal Pain Last Admin: 03/30/17 03:16 Dose: 30 ml Al Hydroxide/Mg Hydroxide (Mag-Al Plus) 30 ml PO BID TD Last Admin: 03/31/17 09:06 Dose: 30 ml Amoxicillin (Amoxil) 1,000 mg PO Q12HR [facility] Stop: 04/13/17 20:01 Last Admin: 03/31/17 09:07 Dose: 1,000 mg Clarithromycin (Biaxin) 500 mg PO BID TD Stop: 04/13/17 14:46 Last Admin: 03/31/17 09:07 Dose: 500 mg Lisinopril (Prinivil) 10 mg PO DAILY [facility] Last Admin: 03/31/17 09:07 Dose: 10 mg Lorazepam (Ativan) 0 mg PO ASDIRECTED [facility] PRN Reason: Protocol Last Admin: 03/30/17 23:01 Dose: Not Given Octreotide Acetate (Sandostatin) 50 mcg SUBCUT BID [facility] Last Admin: 03/31/17 09:11 Dose: 50 mcg [facility]: 04/13/17 20:01 Last Admin: 03/31/17 07:10 Dose: 80 mg Ondansetron HCl (Zofran Odt) 4 mg PO Q4H PRN PRN Reason: Nausea/Vomiting Last Admin: 03/29/17 15:43 Dose: 4 mg Oxycodone HCl (Oxycodone) 5 mg PO Q4H PRN PRN Reason: Pain Last Admin: 03/30/17 23:02 Dose: 5 mg Ranitidine HCl (Zantac) 150 mg PO BID [facility] Last Admin: 03/31/17 09:16 Dose: 150 mg Sodium Chloride (Saline Flush) 10 ml FLUSH ASDIRECTED PRN PRN Reason: Keep Vein Open Last Admin: 03/30/17 11:49 Dose: 10 ml Venlafaxine HCl (Effexor Xr) 37.5 mg PO WITHBREAKFAST [facility] Last Admin: 03/31/17 09:20 Dose: 37.5 mg Discontinued Medications Al Hydroxide/Mg Hydroxide (Gi Cocktail) 30 ml PO ONETIME ONE Stop: 03/29/17 15:00 Last Admin: 03/29/17 15:53 Dose: 30 ml Amoxicillin (Amoxil) Confirm Administered Dose 1,000 mg .ROUTE .STK-MED ONE Stop: 03/30/17 15:52 Last Admin: 03/30/17 15:59 Dose: Not Given Amoxicillin/Clavulanate Potassium (Augmentin 875 Mg/125 Mg) 1 tab PO Q12HR [facility] Stop: 04/08/17 20:01 Last Admin: 03/30/17 08:19 Dose: 1 tab Multivitamins/Minerals 10 ml/Thiamine HCl 100 mg/ Folic Acid 1 mg/ Magnesium Sulfate 3 gm/ Sodium Chloride 1,017.2 mls @ 100 mls/hr IV ASDIRECTED [facility] Last Admin: 03/29/17 15:36 Dose: 100 mls/hr Octreotide Acetate (Sandostatin) 50 mcg IVPUSH BOLUS ONE Stop: 03/30/17 11:03 Last Admin: 03/30/17 11:46 Dose: 50 mcg Octreotide Acetate (Sandostatin) 50 mcg SUBCUT DAILY [facility] Stop: 03/30/17 11:30 Last Admin: 03/30/17 11:47 Dose: Not Given Omeprazole (Omeprazole) Confirm Administered Dose 80 mg .ROUTE .STK-MED ONE Stop: 03/30/17 15:52 Last Admin: 03/30/17 16:00 Dose: Not Given Pantoprazole Sodium (Protonix Iv) 80 mg IVPUSH ASDIRECTED [facility] Stop: 03/29/17 16:00 Last Admin: 03/29/17 15:37 Dose: 80 mg Venlafaxine HCl (Effexor Xr) 37.5 mg PO DAILY [facility] Last Admin: 03/30/17 11:18 Dose: 37.5 mg *Q Meaningful Use (DIS) - VTE *Q VTE Criteria *Q: - Stroke *Q Stroke Criteria *Q: - AMI *Q AMI Criteria *Q:
== END 2017-03-31 11:18 | disposition home or self-care (01) | DRG 253 ==
LOC: UNDOADMIN 14:24 → LB.MS 14:24
PROVIDERS: ADMIT Family Medicine; ATTEND Family Medicine
DX: K92.0 Hematemesis (principal); F10.239 Alcohol dependence with withdrawal, unspecified; K04.7 Periapical abscess without sinus; F32.9 Major depressive disorder, single episode, unspecified; I10 Essential (primary) hypertension; K21.9 Gastro-esophageal reflux disease without esophagitis; R73.03 Prediabetes; Z79.899 Other long term (current) drug therapy
CPT/HCPCS: 36415; 80048; 83690; 84075; 84450; 84460; 85025; 87338; A9270-GY; C9113; J2354; J3411; J3475; J3490; J7040; J7050

== ENCOUNTER 2018-12-10 04:51 | Observation (INO) | payer BC ==
[2018-12-10] MEDS ORDERED: LORazepam 2 MG/ML SDV IVPUSH ONE (05:18)
[2018-12-10] MEDS ORDERED: Ondansetron 4 MG/2 ML SDV IVPUSH ONE (05:21)
[2018-12-10] MEDS ORDERED: MVI, Adult with Vitamin K 10 ML, Thiamine 100 MG, Folic Acid 1 MG, Magnesium Sulfate 3 ... IV SCH ×5 (05:30)
[2018-12-10] MEDS ORDERED: Sodium Chloride 0.9% 1,000 ML IV SCH (05:34)
[2018-12-10] MEDS ORDERED: Pantoprazole 40 MG Vial IVPUSH ONE (06:17)
[2018-12-10] MEDS: LORazepam 2 MG/ML SDV IVPUSH PRN ×5 (06:30→22:33)
--- NOTE | 2018-12-10 09:46 | PCM.HP ---
H&P History of Present Illness - General Date of Service: 12/10/18 Admit Problem/Dx: Admission Diagnosis/Problem Admission Diagnosis/Problem Alcohol dependence with withdrawal with perceptual disturbance - History of Present Illness Initial Comments - Free Text/Narative: This is a 48yo M admitted by Ladarius Hilario for alcohol withdrawal. He has been drinking 1 litre of hard alcohol a day for the past week. He [facility] due to drinking. He states he feels worsening depression and has not been on his depression meds for the past few months. He has been sober prior to this for 5-6 months. He has some abdominal tenderness but states his nausea and vomiting has improved. Duration of Symptoms: Reports: Day(s):, Getting Worse Location: Reports: Generalized - Related Data Allergies/Adverse Reactions: Allergies Allergy/AdvReac Type Severity Reaction Status Date / Time No Known Allergies Allergy Verified 12/10/18 05:40 Home Medications: Home Meds Lisinopril/Hydrochlorothiazide [Lisinopril-Hctz 10-12.5 mg Tab] 1 each PO BEDTIME 08/24/15 [History] Venlafaxine [Effexor XR] 37.5 mg PO BEDTIME 04/19/18 [History] Esomeprazole [NexIUM] 40 mg PO DAILY 12/10/18 [History] Ondansetron [Zofran ODT] 4 mg PO Q6H PRN 12/10/18 [History] Past Medical History HEENT History: Reports: Other (See Below) Other HEENT History: High Blood pressure, ETOH ,Shoulder pain, Cardiovascular History: Reports: Hypertension Gastrointestinal History: Reports: GERD Musculoskeletal History: Reports: Other (See Below) Other Musculoskeletal History: Right shoulder surgery and pain Psychiatric History: Reports: Addiction, Anxiety, Depression Endocrine/Metabolic History: Reports: Other (See Below) Other Endocrine/Metabolic History: states "borderline diabetic" - Infectious Disease History Infectious Disease History: Reports: Chicken Pox - Past Surgical History HEENT Surgical History: Reports: Other (See Below) Other HEENT Surgeries/Procedures: Append.,Right shoulder surgery, GI Surgical History: Reports: Appendectomy, Colonoscopy Musculoskeletal Surgical History: Reports: Shoulder Surgery Other Musculoskeletal Surgeries/Procedures:: Right shoulder SAD/DCR 2010 Social & Family History - Family History Family Medical History: Noncontributory GI: Reports: Other (See Below) Other GI Family History: significant colon hx Psychiatric: Reports: Other (See Below) Other Psychiatric Family History: alcoholism - Tobacco Use Smoking Status *Q: Never Smoker Second Hand Smoke Exposure: No - Caffeine Use Caffeine Use: Reports: Coffee - Alcohol Use Days Per Week of Alcohol Use: 7 Number of Drinks Per Day: 20 Total Drinks Per Week: 140 Date of Last Drink: 12/09/18 Time of Last Drink: 15:00 - Recreational Drug Use Recreational Drug Use: No H&P Review of Systems - Review of Systems: Review Of Systems: ROS reveals no pertinent complaints other than HPI. Exam - Exam Exam: See Below - Vital Signs Vital Signs: Last Vital Signs Temp 36.9 C 12/10/18 08:14 Pulse 112 H 12/10/18 08:14 Resp 16 12/10/18 08:14 BP 145/100 H 12/10/18 08:14 Pulse Ox 98 12/10/18 08:14 Weight: 108.862 kg - Exam General: Alert, Oriented, Cooperative, Moderate Distress HEENT: PERRLA, Conjunctiva Clear, EACs Clear, EOMI Neck: Supple, Trachea Midline Lungs: Clear to Auscultation, Normal Respiratory Effort Cardiovascular: Regular Rhythm, Tachycardia GI/Abdominal Exam: Abnormal Bowel Sounds (hyperactive) Back Exam: Normal Inspection Extremities: Normal Inspection - Patient Data Lab Results Last 24 hrs: Laboratory Results - last 24 hr 12/10/18 12/10/18 12/10/18 Range/Units 05:35 05:35 05:35 WBC 9.6 (4.0-11.0) K/uL RBC 5.21 (4.50-6.50) M/uL Hgb 15.4 (13.0-18.0) g/dL Hct 44.1 (40.0-54.0) % MCV 85 (76-96) fL MCH 29.6 (27.0-32.0) pg MCHC 34.9 (31.0-35.0) g/dL RDW 13.0 (11.0-16.0) % Plt Count 258 (150-400) K/uL MPV 9.4 (6.0-10.0) fL Neut % (Auto) 71.0 H (45.0-70.0) % Lymph % (Auto) 19.9 L (20.0-40.0) % Pettis % (Auto) 8.2 (3.0-10.0) % Eos % (Auto) 0.4 L (1.0-5.0) % Baso % (Auto) 0.5 (0.0-0.5) % Neut # (Auto) 6.79 (2.00-7.50) K/uL Lymph # (Auto) 1.91 (1.50-4.00) K/uL Pettis # (Auto) 0.79 (0.20-0.80) K/uL Eos # (Auto) 0.04 (0.04-0.40) K/uL Baso # (Auto) 0.05 (0.02-0.10) K/uL Sodium 141 (136-145) mmol/L Potassium 3.5 (3.5-5.1) mmol/L Chloride 97 L (98-107) mmol/L Carbon Dioxide 25.1 (21.0-32.0) mmol/L Anion Gap 22.4 H (5.0-15.0) mmol/L BUN 14 D (8-26) mg/dL Creatinine 1.11 D (0.70-1.30) mg/dL Est Cr Clr Drug Dosing 84.95 mL/min Estimated GFR (MDRD) > 60 (>60) MLS/MIN BUN/Creatinine Ratio 12.6 (6-25) Glucose 180 H D (74-100) mg/dL Calcium 7.7 L (8.5-10.1) mg/dL Total Bilirubin 0.6 D (0.0-1.0) mg/dL AST 51 H (15-37) U/L ALT 57 (12-78) U/L Alkaline Phosphatase 72 (46-116) U/L Total Protein 8.2 (6.4-8.2) g/dL Albumin 3.9 (3.4-5.0) g/dL Globulin 4.3 H (2.2-4.2) g/dL Albumin/Globulin Ratio 0.9 (0.8-2.0) Ethyl Alcohol 164.0 H (0.0-0.0) mg/dL Result Diagrams: 12/10/18 05:35 12/10/18 05:35 - Problem List (1) Alcohol withdrawal SNOMED Code(s): 384859393 ICD Code: F10.239 - ALCOHOL DEPENDENCE WITH WITHDRAWAL, UNSPECIFIED Status : Acute Priority: High Current Visit: Yes (2) Nausea & vomiting SNOMED Code(s): 72121345 ICD Code: R11.2 - NAUSEA WITH VOMITING, UNSPECIFIED Status: Acute Priority: High Current Visit: Yes Qualifiers: Vomiting type: hematemesis Qualified Code(s): K92.0 - Hematemesis; R11.0 - Nausea (3) Depression SNOMED Code(s): 79670912 ICD Code: F32.9 - MAJOR DEPRESSIVE DISORDER, SINGLE EPISODE, UNSPECIFIED Status: Chronic Priority: High Current Visit: Yes Qualifiers: Active/Remission status: currently active Major depression episode severity : moderate Problem List Initiated/Reviewed/Updated: Yes Orders Last 24hrs: Active Orders 24 hr Category Date Time Status CIWAA Assessment [RC] Q1H Care 12/10/18 05:57 Active Vital Signs [RC] Q2H Care 12/10/18 06:14 Active Clear Liquid Diet [DIET] Diet 12/10/18 Lunch Ordered DRUG SCREEN, URINE [URCHEM] Stat Lab 12/10/18 05:29 Ordered LORazepam [Ativan] Med 12/10/18 05:59 Active See Protocol IVPUSH Q4H PRN MVI, Adult with Vitamin K [Infuvite Adult] 10 ml Med 12/10/18 05:30 Active Thiamine [Vitamin B-1] 100 mg Folic Acid 1 mg Magnesium Sulfate [Magnesium Sulfate 50%] 3 gm Sodium Chloride 0.9% [Normal Saline] 1,000 ml IV ASDIRECTED Sodium Chloride 0.9% [Normal Saline] 1,000 ml Med 12/10/18 05:34 Active IV ASDIRECTED Resuscitation Status Routine Resus Stat 12/10/18 06:14 Ordered Medication Orders Multivitamins/Minerals 10 ml/Thiamine HCl 100 mg/ Folic Acid 1 mg/ Magnesium Sulfate 3 gm/ Sodium Chloride 1,017.2 mls @ 250 mls/hr IV ASDIRECTED TD Last Admin: 12/10/18 07:41 Dose: 250 mls/hr Sodium Chloride (Normal Saline) 1,000 mls @ 999 mls/hr IV ASDIRECTED TD Last Admin: 12/10/18 05:34 Dose: 999 mls/hr Lorazepam (Ativan) 0 mg IVPUSH Q4H PRN; Protocol PRN Reason: Withdrawal Symptoms Last Admin: 12/10/18 06:30 Dose: 2 mg Assessment/Plan Comment:: Patient refused a detox center. We will continue CIWAA protocol at this time.
--- NOTE | 2018-12-10 11:33 | ER ---
HISTORY OF PRESENT ILLNESS: A 48-year-old male here with complaints of alcohol abuse. He states he drank a liter of vodka or more for the last 6 days. He quit drinking yesterday. He finally got to the point where he knew he had to quit. The patient has not been feeling well. He is shaky. He has been nauseated and has vomited several times since yesterday. He states his abdomen is sore and somewhat tender especially in the upper right quadrant. The patient has not been running a fever. He states he has not been vomiting blood. PAST MEDICAL HISTORY: Does include alcohol abuse, depression, and hypertension. MEDICATIONS: The patient states he is not using any of his current prescription medications and has not for a while. OBJECTIVE: GENERAL APPEARANCE: The patient is awake, he is quiet. He is pleasant. He is talkative. No respiratory distress. VITAL SIGNS: Reviewed. Blood pressure is 154/100, he is afebrile, pulse is 118, respirations 20, O2 sats 95%. HEENT: Ears, TMs are dull. Nares are patent. Oral mucous membranes are dry in appearance. Tonsils are not enlarged or injected. Pharynx not inflamed. NECK: Supple. LUNGS: Clear. CARDIAC: Heart sounds are distinct. S1, S2 present. No murmurs noted. Regular rate. ABDOMEN: Soft. There is tenderness in the upper right quadrant with palpation and guarding. Bowel sounds are present. SKIN: Warm and dry. LABORATORY DATA: CBC is unremarkable. Comprehensive metabolic panel looks okay. His AST is only slightly elevated at 51. Kidney function is normal. EtOH is 0.164. DIAGNOSIS: Alcohol abuse with acute withdrawal symptoms. TREATMENT PLAN: An IV was started. The patient was given Zofran 8 mg IV and Ativan 2 mg IV. The patient noted significant improvement within about 10-15 minutes. A liter of IV fluid was started as well. We will bolus 1 liter in. The patient will then be admitted to observation where we will follow him for the day, giving him more IV fluids with a banana bag. Ativan per CRISTITXA protocol and continuing to give other meds as needed. I will transfer the patient to Dr. Ying's care within a couple of hours as my shift will be ending. CRS/MODL /[id number]
--- NOTE | 2018-12-10 11:39 | HP ---
This is an admission note to observation. The patient was admitted through the emergency room for alcohol abuse with acute alcohol withdrawal symptoms. The patient was given IV fluids in the emergency room plus Zofran and Ativan. This did seem to control his symptoms fairly well. Lab work is back and CBC is reasonably normal. Neutrophils are just slightly elevated. Comprehensive metabolic panel shows an AST of 51, otherwise, unremarkable. EtOH is 0.164. The patient will be admitted for further IV fluids with a banana bag. He will be monitored per [facility] protocol. He will get Protonix IV and the patient will be monitored for the day. At this time, the patient is pleasant. He is compliant with treatment measures. He is grateful for being here and he has been through this process before. PAST MEDICAL HISTORY: Includes hypertension, depression, alcohol abuse. MEDICATIONS: The patient has not been taking any of his prescription meds lately, stating it has been as long as 6 months since he has taken some of them. OBJECTIVE: GENERAL APPEARANCE: The patient is awake and alert, talkative, pleasant. HEENT: Oral mucous membranes are dry. Tonsils are not enlarged or injected. Pharynx not inflamed. NECK: Supple. LUNGS: Clear. CARDIAC: Heart sounds distinct without murmurs. ABDOMEN: Soft. He does have upper right quadrant tenderness with palpation. SKIN: Warm and dry. ASSESSMENT AND PLAN: I will refer the patient's care to Dr. Ying who will be coming on this morning. The patient tells me that Dr. Ying is his primary care provider. CRS/MODL
[2018-12-10] MEDS: Sodium Chloride 0.9% 1,000 ML IV SCH ×2 (11:46→12:33)
[2018-12-10] MEDS ORDERED: Lisinopril 10 MG Tab ONE (13:39)
[2018-12-10] MEDS ORDERED: Hydrochlorothiazide 12.5 MG Cap ONE (13:40)
[2018-12-10] MEDS: Hydrochlorothiazide 12.5 MG Cap PO SCH (13:45)
[2018-12-10] MEDS: Lisinopril 10 MG Tab PO SCH (13:45)
[2018-12-10] MEDS: Calcium Carbonate 500 MG Tab.Chew PO PRN ×2 (13:49→17:50)
[2018-12-10] MEDS ORDERED: LORazepam 2 MG/ML SDV ONE (14:18)
[2018-12-11] MEDS: LORazepam 2 MG/ML SDV IVPUSH PRN ×3 (02:10→12:09)
[2018-12-11] MEDS ORDERED: LORazepam 2 MG/ML SDV ONE ×2 (05:31→12:10)
[2018-12-11] MEDS: Hydrochlorothiazide 12.5 MG Cap PO SCH (07:48)
[2018-12-11] MEDS: Lisinopril 10 MG Tab PO SCH (07:48)
[2018-12-11] MEDS: Calcium Carbonate 500 MG Tab.Chew PO PRN ×2 (12:08→20:19)
--- NOTE | 2018-12-11 13:32 | PCM.PN ---
- General Info Date of Service: 12/11/18 Subjective Update: Patient has some tremors and agitation. He states he is feeling a little better. He continues to have some abdominal reflux symptoms and gastritis symptoms. He has a decreased appetite. - Review of Systems General: Denies: Appetite HEENT: Reports: No Symptoms Pulmonary: Reports: No Symptoms Cardiovascular: Reports: No Symptoms Gastrointestinal: Reports: Other (abdominal and epigastric discomfort) Musculoskeletal: Reports: No Symptoms Neurological: Reports: Tremors Psychiatric: Reports: Depression, Anxiety - Patient Data Vitals - Most Recent: Last Vital Signs Temp 36.9 C 12/11/18 12:00 Pulse 116 H 12/11/18 12:00 Resp 20 12/11/18 12:00 BP 150/102 H 12/11/18 12:00 Pulse Ox 95 12/11/18 12:00 Weight - Most Recent: 108.862 kg I&O - Last 24 Hours: Intake & Output 12/10/18 12/11/18 12/11/18 22:59 06:59 14:59 Intake Total 1000 Balance 1000 Michelet Results Last 24 Hours: Microbiology 12/10/18 14:21 MRSA Surveillance Culture - Final Nares, Right NO MRSA ISOLATED Med Orders - Current: Current Medications Calcium Carbonate/Glycine (Tums) 500 mg PO TID PRN PRN Reason: INDEGESTION Last Admin: 12/11/18 12:08 Dose: 500 mg Hydrochlorothiazide (Hydrochlorothiazide) 12.5 mg PO DAILY [facility] Last Admin: 12/11/18 07:48 Dose: 12.5 mg Multivitamins/Minerals 10 ml/Thiamine HCl 100 mg/ Folic Acid 1 mg/ Magnesium Sulfate 3 gm/ Sodium Chloride 1,017.2 mls @ 250 mls/hr IV ASDIRECTED [facility] Last Admin: 12/10/18 07:41 Dose: 250 mls/hr Sodium Chloride (Normal Saline) 1,000 mls @ 125 mls/hr IV ASDIRECTED [facility] Last Admin: 12/10/18 12:33 Dose: 125 mls/hr Lisinopril (Prinivil) 10 mg PO DAILY [facility] Last Admin: 12/11/18 07:48 Dose: 10 mg Lorazepam (Ativan) 0 mg IVPUSH Q4H PRN; Protocol PRN Reason: Withdrawal Symptoms Last Admin: 12/11/18 12:09 Dose: 2 mg Discontinued Medications Heparin Sodium (Porcine) (Heparin Lock Flush 100 Units/Ml) 500 units .ROUTE .STK-MED ONE Stop: 12/10/18 11:06 Hydrochlorothiazide (Hydrochlorothiazide) Confirm Administered Dose 12.5 mg .ROUTE .STK-MED ONE Stop: 12/10/18 13:41 Last Admin: 12/10/18 13:49 Dose: Not Given Sodium Chloride (Normal Saline) 1,000 mls @ 999 mls/hr IV ASDIRECTED TD Last Admin: 12/10/18 05:34 Dose: 999 mls/hr Lisinopril (Prinivil) Confirm Administered Dose 10 mg .ROUTE .STK-MED ONE Stop: 12/10/18 13:40 Last Admin: 12/10/18 13:49 Dose: Not Given Lorazepam (Ativan) 2 mg IVPUSH ONETIME ONE Stop: 12/10/18 05:19 Last Admin: 12/10/18 05:25 Dose: 2 mg Lorazepam (Ativan) Confirm Administered Dose 2 mg .ROUTE .STK-MED ONE Stop: 12/11/18 05:32 Last Admin: 12/11/18 07:48 Dose: Not Given Lorazepam (Ativan) 2 mg .ROUTE .STK-MED ONE Stop: 12/10/18 14:19 Lorazepam (Ativan) Confirm Administered Dose 2 mg .ROUTE .STK-MED ONE Stop: 12/11/18 12:11 Last Admin: 12/11/18 12:18 Dose: Not Given Ondansetron HCl (Zofran) 8 mg IVPUSH ONETIME ONE Stop: 12/10/18 05:22 Last Admin: 12/10/18 05:23 Dose: 8 mg Pantoprazole Sodium (Protonix Iv) 40 mg IVPUSH ONETIME ONE Stop: 12/10/18 06:18 Last Admin: 12/10/18 06:35 Dose: 40 mg - Exam General: Alert, Oriented, Cooperative HEENT: Pupils Equal, Pupils Reactive, Mucous Membr. Moist/Parchment Neck: Supple Lungs: Clear to Auscultation, Normal Respiratory Effort Cardiovascular: Regular Rhythm, Tachycardia GI/Abdominal Exam: Normal Bowel Sounds, Soft, Non-Tender Back Exam: Normal Inspection Extremities: Normal Inspection, Normal Range of Motion, Non-Tender - Problem List & Annotations (1) Alcohol withdrawal SNOMED Code(s): 526724258 Code(s): F10.239 - ALCOHOL DEPENDENCE WITH WITHDRAWAL, UNSPECIFIED Status: Acute Priority: High Current Visit: Yes (2) Nausea & vomiting SNOMED Code(s): 05362639 Code(s): R11.2 - NAUSEA WITH VOMITING, UNSPECIFIED Status: Acute Priority : High Current Visit: Yes Qualifiers: Vomiting type: hematemesis Qualified Code(s): K92.0 - Hematemesis; R11.0 - Nausea (3) Depression SNOMED Code(s): 95533696 Code(s): F32.9 - MAJOR DEPRESSIVE DISORDER, SINGLE EPISODE, UNSPECIFIED Status: Chronic Priority: High Current Visit: Yes Qualifiers: Active/Remission status: currently active Major depression episode severity : moderate - Problem List Review Problem List Initiated/Reviewed/Updated: Yes - My Orders Last 24 Hours: My Active Orders 12/10/18 13:25 Calcium Carbonate [Tums] 500 mg PO TID PRN 12/11/18 08:00 Lisinopril [Prinivil] 10 mg PO DAILY hydroCHLOROthiazide 12.5 mg PO DAILY - Plan Plan:: Patient refused a detox center. We will continue CIWAA protocol at this time. 12/11/18 Patient has plan for AA and prevention of drinking in place. He will contact his sponsor and discuss further with his family for future considerations. We will continue monitoring CIWAA scoring and withdrawal symptoms.
[2018-12-11] MEDS: Ibuprofen 600 MG Tab PO PRN ×2 (13:45→20:18)
[2018-12-11] MEDS ORDERED: LORazepam 1 MG Tab ONE (17:52)
[2018-12-11] MEDS: LORazepam 1 MG Tab PO PRN ×2 (18:00→22:05)
[2018-12-12] MEDS: Hydrochlorothiazide 12.5 MG Cap PO SCH (07:58)
[2018-12-12] MEDS: Lisinopril 10 MG Tab PO SCH (07:58)
[2018-12-12 07:59] VITALS: BP 124/83
--- NOTE | 2018-12-12 09:23 | PCM.DCSUM1 ---
Discharge Summary - Discharge Data Discharge Date: 12/12/18 Discharge Disposition: Home, Self-Care 01 Condition: Fair - Discharge Diagnosis/Problem(s) (1) Alcohol withdrawal SNOMED Code(s): 346850298 ICD Code: F10.239 - ALCOHOL DEPENDENCE WITH WITHDRAWAL, UNSPECIFIED Status : Acute Priority: High Current Visit: Yes (2) Nausea & vomiting SNOMED Code(s): 67399517 ICD Code: R11.2 - NAUSEA WITH VOMITING, UNSPECIFIED Status: Acute Priority: High Current Visit: Yes Qualifiers: Vomiting type: hematemesis Qualified Code(s): K92.0 - Hematemesis; R11.0 - Nausea (3) Depression SNOMED Code(s): 73804093 ICD Code: F32.9 - MAJOR DEPRESSIVE DISORDER, SINGLE EPISODE, UNSPECIFIED Status: Chronic Priority: High Current Visit: Yes Qualifiers: Active/Remission status: currently active Major depression episode severity : moderate - Patient Instructions Diet: Usual Diet as Tolerated Activity: As Tolerated Driving: May Drive Today - Discharge Plan Home Medications: Home Meds Lisinopril/Hydrochlorothiazide [Lisinopril-Hctz 10-12.5 mg Tab] 1 each PO BEDTIME 08/24/15 [History] Venlafaxine [Effexor XR] 37.5 mg PO BEDTIME 04/19/18 [History] Esomeprazole [NexIUM] 40 mg PO DAILY 12/10/18 [History] Ondansetron [Zofran ODT] 4 mg PO Q6H PRN 12/10/18 [History] Patient Handouts: Delirium Tremens, [id number], Alcohol Withdrawal Syndrome, [id number] Forms: ED Department Discharge Referrals: PCP,None [Primary Care Provider] - - Discharge Summary/Plan Comment DC Time >30 min.: No Discharge Summary/Plan Comment: Counseled on discharge. Counseled on plan of care for AA, psychology referral, and f/u in clinic next week. Patient states he will f/u in clinic and discuss with family, supportive friends and come into ER if he needs further assistance. He refuses chemical detox at this time. - Patient Data Vitals - Most Recent: Last Vital Signs Temp 36.4 C 12/12/18 08:00 Pulse 99 12/12/18 08:00 Resp 16 12/12/18 08:00 BP 124/83 12/12/18 08:00 Pulse Ox 97 12/12/18 08:00 Weight - Most Recent: 108.862 kg I&O - Last 24 hours: Intake & Output 12/11/18 12/12/18 12/12/18 22:59 06:59 14:59 Intake Total 600 362 Balance 600 362 MEHNAZ Results - Last 24 hrs: Microbiology 12/10/18 14:21 MRSA Surveillance Culture - Final Nares, Right NO MRSA ISOLATED Med Orders - Current: Current Medications Calcium Carbonate/Glycine (Tums) 500 mg PO TID PRN PRN Reason: INDEGESTION Last Admin: 12/11/18 20:19 Dose: 500 mg Hydrochlorothiazide (Hydrochlorothiazide) 12.5 mg PO DAILY [facility] Last Admin: 12/12/18 07:58 Dose: 12.5 mg Multivitamins/Minerals 10 ml/Thiamine HCl 100 mg/ Folic Acid 1 mg/ Magnesium Sulfate 3 gm/ Sodium Chloride 1,017.2 mls @ 250 mls/hr IV ASDIRECTED [facility] Last Admin: 12/10/18 07:41 Dose: 250 mls/hr Sodium Chloride (Normal Saline) 1,000 mls @ 125 mls/hr IV ASDIRECTED [facility] Last Admin: 12/10/18 12:33 Dose: 125 mls/hr Ibuprofen (Motrin) 600 mg PO Q6H PRN PRN Reason: Pain Last Admin: 12/11/18 20:18 Dose: 600 mg Lisinopril (Prinivil) 10 mg PO DAILY [facility] Last Admin: 12/12/18 07:58 Dose: 10 mg Lorazepam (Ativan) 1 mg PO Q4H PRN PRN Reason: Anxiety Last Admin: 12/11/18 22:05 Dose: 1 mg Discontinued Medications Heparin Sodium (Porcine) (Heparin Lock Flush 100 Units/Ml) 500 units .ROUTE .STK-MED ONE Stop: 12/10/18 11:06 Hydrochlorothiazide (Hydrochlorothiazide) Confirm Administered Dose 12.5 mg .ROUTE .STK-MED ONE Stop: 12/10/18 13:41 Last Admin: 12/10/18 13:49 Dose: Not Given Sodium Chloride (Normal Saline) 1,000 mls @ 999 mls/hr IV ASDIRECTED [facility] Last Admin: 12/10/18 05:34 Dose: 999 mls/hr Lisinopril (Prinivil) Confirm Administered Dose 10 mg .ROUTE .STK-MED ONE Stop: 12/10/18 13:40 Last Admin: 12/10/18 13:49 Dose: Not Given Lorazepam (Ativan) 2 mg IVPUSH ONETIME ONE Stop: 12/10/18 05:19 Last Admin: 12/10/18 05:25 Dose: 2 mg Lorazepam (Ativan) 0 mg IVPUSH Q4H PRN; Protocol PRN Reason: Withdrawal Symptoms Last Admin: 12/11/18 12:09 Dose: 2 mg Lorazepam (Ativan) Confirm Administered Dose 2 mg .ROUTE .STK-MED ONE Stop: 12/11/18 05:32 Last Admin: 12/11/18 07:48 Dose: Not Given Lorazepam (Ativan) 2 mg .ROUTE .STK-MED ONE Stop: 12/10/18 14:19 Lorazepam (Ativan) Confirm Administered Dose 2 mg .ROUTE .STK-MED ONE Stop: 12/11/18 12:11 Last Admin: 12/11/18 12:18 Dose: Not Given Lorazepam (Ativan) Confirm Administered Dose 1 mg .ROUTE .STK-MED ONE Stop: 12/11/18 17:53 Last Admin: 12/11/18 19:17 Dose: Not Given Ondansetron HCl (Zofran) 8 mg IVPUSH ONETIME ONE Stop: 12/10/18 05:22 Last Admin: 12/10/18 05:23 Dose: 8 mg Pantoprazole Sodium (Protonix Iv) 40 mg IVPUSH ONETIME ONE Stop: 12/10/18 06:18 Last Admin: 12/10/18 06:35 Dose: 40 mg
== END 2018-12-12 10:00 | disposition home or self-care (01) ==
LOC: LB.ED 04:51 → LB.MS 06:10
PROVIDERS: ADMIT Physician Assistant; ATTEND Family Medicine
DX: F10.232 Alcohol dependence with withdrawal with perceptual disturbance (principal); F32.9 Major depressive disorder, single episode, unspecified; F41.9 Anxiety disorder, unspecified; I10 Essential (primary) hypertension; K21.9 Gastro-esophageal reflux disease without esophagitis; R73.03 Prediabetes; Z79.899 Other long term (current) drug therapy
CPT/HCPCS: 36415; 80053; 80307; 85025; 96361; 96374; 96375; 96376; 99284-25; A9270-GY; C9113; G0480; J1642; J2060; J2405; J3411; J3475; J3490; J7030

== ENCOUNTER 2019-05-18 04:59 | Observation (INO) | payer MEDICAID ==
[2019-05-18] MEDS ORDERED: Sodium Chloride 0.9% 10 ML Syringe FLUSH PRN (05:44)
[2019-05-18] MEDS: Sodium Chloride 0.9% 1,000 ML IV SCH ×4 (06:00→19:21)
[2019-05-18] MEDS ORDERED: Ondansetron 4 MG/2 ML SDV IVPUSH ONE (06:01)
[2019-05-18] MEDS ORDERED: Aluminum Hydroxide/Magnesium Hydroxide/Simethicone Susp 30 ML Cup PO ONE (06:03)
[2019-05-18] MEDS ORDERED: Ondansetron 4 MG/2 ML SDV ONE (06:12)
[2019-05-18] MEDS: LORazepam 2 MG/ML SDV IVPUSH ONE ×2 (06:12→07:50)
[2019-05-18] MEDS ORDERED: LORazepam 2 MG/ML SDV ONE ×2 (06:13→08:37)
--- NOTE | 2019-05-18 06:56 | EDM.PDOC ---
ED HPI GENERAL MEDICAL PROBLEM - General Chief Complaint: General Stated Complaint: Vomiting, Right Flank Pain Time Seen by Provider: 05/18/19 05:45 Source of Information: Reports: Patient History Limitations: Reports: No Limitations - History of Present Illness INITIAL COMMENTS - FREE TEXT/NARRATIVE: This is a 49yo M here for drinking the past 2 weeks and has now stopped drinking since yesterday. He has started to feel very ill, vomit, with tremors and chest pain. He has had prior alcohol withdrawal episodes. He had been drinking about 1 L daily of hard alcohol. He states that if he had found his other 2 bottles of alcohol he would not have come in. He does understand that he needs assistance and that he is in withdrawal. Onset: Gradual Duration: Day(s):, Week(s):, Getting Worse Severity: Moderate Improves with: Reports: None Worsens with: Reports: None Associated Symptoms: Reports: Chest Pain, Loss of Appetite, Nausea/Vomiting - Related Data Allergies Allergy/AdvReac Type Severity Reaction Status Date / Time No Known Allergies Allergy Verified 05/18/19 05:45 Home Meds: Home Meds Lisinopril/Hydrochlorothiazide [Lisinopril-Hctz 10-12.5 mg Tab] 1 each PO BEDTIME 08/24/15 [History] Venlafaxine [Effexor XR] 37.5 mg PO BEDTIME 04/19/18 [History] Esomeprazole [NexIUM] 40 mg PO DAILY 12/10/18 [History] Ondansetron [Zofran ODT] 4 mg PO Q6H PRN 12/10/18 [History] Past Medical History HEENT History: Reports: Other (See Below) Other HEENT History: High Blood pressure, ETOH ,Shoulder pain, Cardiovascular History: Reports: Hypertension Gastrointestinal History: Reports: GERD Musculoskeletal History: Reports: Other (See Below) Other Musculoskeletal History: Right shoulder surgery and pain Psychiatric History: Reports: Addiction, Anxiety, Depression Endocrine/Metabolic History: Reports: Other (See Below) Other Endocrine/Metabolic History: states "borderline diabetic" - Infectious Disease History Infectious Disease History: Reports: Chicken Pox - Past Surgical History HEENT Surgical History: Reports: Other (See Below) Other HEENT Surgeries/Procedures: Append.,Right shoulder surgery, GI Surgical History: Reports: Appendectomy, Colonoscopy Musculoskeletal Surgical History: Reports: Shoulder Surgery Other Musculoskeletal Surgeries/Procedures:: Right shoulder SAD/DCR 2010 Social & Family History - Family History Family Medical History: Noncontributory GI: Reports: Other (See Below) Other GI Family History: significant colon hx Psychiatric: Reports: Other (See Below) Other Psychiatric Family History: alcoholism - Caffeine Use Caffeine Use: Reports: Coffee ED ROS GENERAL - Review of Systems Review Of Systems: ROS reveals no pertinent complaints other than HPI. ED EXAM, GENERAL - Physical Exam Exam: See Below Exam Limited By: No Limitations General Appearance: Alert, WD/WN, Mild Distress Eye Exam: Bilateral Eye: EOMI, PERRL Ears: Normal External Exam Nose: Normal Inspection Throat/Mouth: Normal Inspection Head: Atraumatic, Normocephalic Neck: Normal Inspection Respiratory/Chest: No Respiratory Distress, Lungs Clear, Normal Breath Sounds Cardiovascular: Normal Peripheral Pulses, Tachycardia Peripheral Pulses: 2+: Dorsalis Pedis (L), Dorsalis Pedis (R) GI/Abdominal: Soft, Tender (epigastric), Abnormal Bowel Sounds (hyperactive) Back Exam: Normal Inspection Extremities: Normal Inspection Neurological: Alert, Oriented, CN II-XII Intact Psychiatric: Depressed Mood, Tearful Skin Exam: Warm, Dry, Intact Course - Vital Signs Last Recorded V/S: Last Vital Signs Temp 36.9 C 05/18/19 05:12 Pulse 139 H 05/18/19 05:12 Resp 20 05/18/19 05:12 BP 134/80 05/18/19 05:12 Pulse Ox 95 05/18/19 05:12 - Orders/Labs/Meds Orders: Active Orders 24 hr Category Date Time Status Patient Status [ADT] Routine ADT 05/18/19 06:47 Ordered Assess Neurological Status [RC] ASDIRECTED Care 05/18/19 06:49 Ordered CIWAA Assessment [RC] Q1H Care 05/18/19 06:49 Ordered EKG Documentation Completion [RC] ASDIRECTED Care 05/18/19 05:43 Active Notify Provider [RC] PRN Care 05/18/19 06:50 Ordered Oxygen Therapy [RC] PRN Care 05/18/19 06:47 Ordered Vital Signs [RC] Q4H Care 05/18/19 06:47 Ordered Regular Diet [DIET] Diet 05/18/19 Breakfast Ordered UA RFX MEHNAZ AND CULT IF INDIC [URIN] Stat Lab 05/18/19 05:43 Ordered LORazepam [Ativan] Med 05/18/19 07:00 Ordered See Protocol PO ASDIRECTED MVI, Adult with Vitamin K [Infuvite Adult] 10 ml Med 05/18/19 07:00 Ordered Thiamine [Vitamin B-1] 100 mg Dextrose 5%-0.45% NaCl [Dextrose 5%-1/2 NS] 1,000 ml IV ONETIME Sodium Chloride 0.9% [Normal Saline] 1,000 ml Med 05/18/19 05:45 Active IV ASDIRECTED Sodium Chloride 0.9% [Saline Flush] Med 05/18/19 05:44 Active 10 ml FLUSH ASDIRECTED PRN ED Alcohol and Substance Abuse Reflex [OM.PC] Click to Oth 05/18/19 06:48 Ordered Edit Peripheral IV Insertion Adult [OM.PC] Routine Oth 05/18/19 05:44 Ordered Seizure Precautions [OM.PC] Routine Oth 05/18/19 06:49 Ordered EKG 12 Lead [EK] Routine Ther 05/18/19 05:43 Ordered Medication Orders Sodium Chloride (Normal Saline) 1,000 mls @ 999 mls/hr IV ASDIRECTED TD Last Admin: 05/18/19 06:00 Dose: 999 mls/hr Sodium Chloride (Saline Flush) 10 ml FLUSH ASDIRECTED PRN PRN Reason: Keep Vein Open Last Admin: 05/18/19 05:50 Dose: 10 ml Labs: Laboratory Tests 05/18/19 05/18/19 05/18/19 Range/Units 05:50 05:50 05:50 WBC 18.2 H D (4.0-11.0) K/uL RBC 5.51 (4.50-6.50) M/uL Hgb 16.9 (13.0-18.0) g/dL Hct 47.8 (40.0-54.0) % MCV 87 (76-96) fL MCH 30.7 (27.0-32.0) pg MCHC 35.4 H (31.0-35.0) g/dL RDW 14.3 (11.0-16.0) % Plt Count 342 (150-400) K/uL MPV 9.4 (6.0-10.0) fL Neut % (Auto) 83.4 H (45.0-70.0) % Lymph % (Auto) 11.2 L (20.0-40.0) % Mcclain % (Auto) 5.2 (3.0-10.0) % Eos % (Auto) 0.0 L (1.0-5.0) % Baso % (Auto) 0.2 (0.0-0.5) % Neut # (Auto) 15.20 H (2.00-7.50) K/uL Lymph # (Auto) 2.04 (1.50-4.00) K/uL Mcclain # (Auto) 0.95 H (0.20-0.80) K/uL Eos # (Auto) 0.00 L (0.04-0.40) K/uL Baso # (Auto) 0.04 (0.02-0.10) K/uL Sodium 142 (136-145) mmol/L Potassium 4.0 (3.5-5.1) mmol/L Chloride 98 (98-107) mmol/L Carbon Dioxide 18.6 L D (21.0-32.0) mmol/L Anion Gap 29.4 H (5.0-15.0) mmol/L BUN 14 (8-26) mg/dL Creatinine 1.16 (0.70-1.30) mg/dL Est Cr Clr Drug Dosing TNP Estimated GFR (MDRD) > 60 (>60) MLS/MIN BUN/Creatinine Ratio 12.1 (6-25) Glucose 127 H (74-100) mg/dL Lactic Acid 9.72 H (0.90-1.70) mmol/L Calcium 8.6 (8.5-10.1) mg/dL Total Bilirubin 0.7 D (0.0-1.0) mg/dL AST 35 (15-37) U/L ALT 33 (12-78) U/L Alkaline Phosphatase 88 (46-116) U/L Troponin I < 0.017 (0.000-0.060) ng/mL Total Protein 8.6 H (6.4-8.2) g/dL Albumin 4.1 (3.4-5.0) g/dL Globulin 4.5 H (2.2-4.2) g/dL Albumin/Globulin Ratio 0.9 (0.8-2.0) Ethyl Alcohol 217.0 H (<3.0) mg/dL Meds: Medications Generic Name Dose Route Start Last Admin Trade Name Freq PRN Reason Stop Dose Admin Sodium Chloride 1,000 mls @ 999 mls/hr 05/18/19 05:45 05/18/19 06:00 Normal Saline IV 999 mls/hr ASDIRECTED TD Administration Sodium Chloride 10 ml 05/18/19 05:44 05/18/19 05:50 Saline Flush FLUSH 10 ml ASDIRECTED PRN Administration Keep Vein Open Discontinued Medications Generic Name Dose Route Start Last Admin Trade Name Freq PRN Reason Stop Dose Admin Al Hydroxide/Mg Hydroxide 30 ml 05/18/19 06:03 05/18/19 06:19 Mag-Al Plus PO 05/18/19 06:04 30 ml ONETIME ONE Administration Lorazepam 1 mg 05/18/19 06:02 05/18/19 06:12 Ativan IVPUSH 05/18/19 06:03 1 mg ONETIME ONE Administration Lorazepam Confirm 05/18/19 06:13 05/18/19 06:19 Ativan Administered 05/18/19 06:14 Not Given Dose 2 mg .ROUTE .STK-MED ONE Ondansetron HCl 4 mg 05/18/19 06:01 05/18/19 06:07 Zofran IVPUSH 05/18/19 06:02 4 mg ONETIME ONE Administration Ondansetron HCl Confirm 05/18/19 06:12 05/18/19 06:10 Zofran Administered 05/18/19 06:13 Not Given Dose 4 mg .ROUTE .STK-MED ONE Departure - Departure Time of Disposition: 07:00 Disposition: Refer to Observation Condition: Fair Clinical Impression: Tachycardia, Tremors of nervous system Alcohol withdrawal Qualifiers: Complication of substance-induced condition: uncomplicated Qualified Code(s): F10.230 - Alcohol dependence with withdrawal, uncomplicated Leukocytosis, unspecified Qualifiers: Leukocytosis type: unspecified Qualified Code(s): D72.829 - Elevated white blood cell count, unspecified Nausea & vomiting Qualifiers: Vomiting type: hematemesis Qualified Code(s): K92.0 - Hematemesis - Discharge Information Referrals: Raul Ying MD [Primary Care Provider] - - Problem List & Annotations (1) Hematemesis SNOMED Code(s): 9006617 Code(s): K92.0 - HEMATEMESIS Status: Acute Priority: High Current Visit : Yes Onset Date: 08/23/14 Annotation/Comment:: 08/23/14 - Diarrhea, Vomiting , Melena, Hematemesis, Erosive esophagitis. (2) Alcohol abuse SNOMED Code(s): 58148098 Code(s): F10.10 - ALCOHOL ABUSE, UNCOMPLICATED Status: Acute Priority: High Current Visit: Yes Onset Date: 05/29/18 (3) Nausea & vomiting SNOMED Code(s): 06645128 Code(s): R11.2 - NAUSEA WITH VOMITING, UNSPECIFIED Status: Acute Priority : High Current Visit: Yes Qualifiers: Vomiting type: hematemesis Qualified Code(s): K92.0 - Hematemesis; R11.0 - Nausea (4) Alcohol withdrawal SNOMED Code(s): 449703009 Code(s): F10.239 - ALCOHOL DEPENDENCE WITH WITHDRAWAL, UNSPECIFIED Status: Acute Priority: High Current Visit: Yes Qualifiers: Complication of substance-induced condition: uncomplicated Qualified Code(s ): F10.230 - Alcohol dependence with withdrawal, uncomplicated (5) Depression SNOMED Code(s): 79361953 Code(s): F32.9 - MAJOR DEPRESSIVE DISORDER, SINGLE EPISODE, UNSPECIFIED Status: Chronic Priority: High Current Visit: Yes Qualifiers: Active/Remission status: currently active Major depression episode severity : moderate (6) Leukocytosis, unspecified SNOMED Code(s): 110476934, 851870475 Code(s): D72.829 - ELEVATED WHITE BLOOD CELL COUNT, UNSPECIFIED Status: Acute Priority: High Current Visit: Yes Qualifiers: Leukocytosis type: unspecified Qualified Code(s): D72.829 - Elevated white blood cell count, unspecified (7) Tachycardia SNOMED Code(s): 5172683 Code(s): R00.0 - TACHYCARDIA, UNSPECIFIED Status: Acute Priority: High Current Visit: Yes (8) Tremors of nervous system SNOMED Code(s): 15885069 Code(s): R25.1 - TREMOR, UNSPECIFIED Status: Acute Priority: High Current Visit: Yes - Problem List Review Problem List Initiated/Reviewed/Updated: Yes - My Orders Last 24 Hours: My Active Orders 05/18/19 05:43 EKG Documentation Completion [RC] ASDIRECTED UA RFX MEHNAZ AND CULT IF INDIC [URIN] Stat EKG 12 Lead [EK] Routine 05/18/19 05:44 Sodium Chloride 0.9% [Saline Flush] 10 ml FLUSH ASDIRECTED PRN Peripheral IV Insertion Adult [OM.PC] Routine 05/18/19 05:45 Sodium Chloride 0.9% [Normal Saline] 1,000 ml IV ASDIRECTED 05/18/19 06:47 Patient Status [ADT] Routine Oxygen Therapy [RC] PRN Vital Signs [RC] Q4H 05/18/19 06:48 ED Alcohol and Substance Abuse Reflex [OM.PC] Click to Edit 05/18/19 06:49 Assess Neurological Status [RC] ASDIRECTED CIWAA Assessment [RC] Q1H Seizure Precautions [OM.PC] Routine 05/18/19 06:50 Notify Provider [RC] PRN 05/18/19 07:00 LORazepam [Ativan] See Protocol PO ASDIRECTED MVI, Adult with Vitamin K [Infuvite Adult] 10 ml Thiamine [Vitamin B-1] 100 mg Dextrose 5%-0.45% NaCl [Dextrose 5%-1/2 NS] 1,000 ml IV ONETIME 05/18/19 Breakfast Regular Diet [DIET] - Assessment/Plan Last 24 Hours: My Active Orders 05/18/19 05:43 EKG Documentation Completion [RC] ASDIRECTED UA RFX MEHNAZ AND CULT IF INDIC [URIN] Stat EKG 12 Lead [EK] Routine 05/18/19 05:44 Sodium Chloride 0.9% [Saline Flush] 10 ml FLUSH ASDIRECTED PRN Peripheral IV Insertion Adult [OM.PC] Routine 05/18/19 05:45 Sodium Chloride 0.9% [Normal Saline] 1,000 ml IV ASDIRECTED 05/18/19 06:47 Patient Status [ADT] Routine Oxygen Therapy [RC] PRN Vital Signs [RC] Q4H 05/18/19 06:48 ED Alcohol and Substance Abuse Reflex [OM.PC] Click to Edit 05/18/19 06:49 Assess Neurological Status [RC] ASDIRECTED CIWAA Assessment [RC] Q1H Seizure Precautions [OM.PC] Routine 05/18/19 06:50 Notify Provider [RC] PRN 05/18/19 07:00 LORazepam [Ativan] See Protocol PO ASDIRECTED MVI, Adult with Vitamin K [Infuvite Adult] 10 ml Thiamine [Vitamin B-1] 100 mg Dextrose 5%-0.45% NaCl [Dextrose 5%-1/2 NS] 1,000 ml IV ONETIME 05/18/19 Breakfast Regular Diet [DIET] Plan: Patient placed in observation for alcohol withdrawal protocol. We will continue close monitoring and CIWAA protocol. Patient counseled extensively and we will f /u labs daily. Placed on telemetry.
[2019-05-18] MEDS ORDERED: MVI IV SCH ×3 (07:00)
[2019-05-18] MEDS ORDERED: THIAMINE IV SCH ×3 (07:00)
[2019-05-18] MEDS ORDERED: VITAMIN K IV SCH ×3 (07:00)
[2019-05-18] MEDS ORDERED: DEXTROSE IV SCH ×3 (07:00)
[2019-05-18] MEDS ORDERED: NACL IV SCH ×3 (07:00)
[2019-05-18] MEDS: Esomeprazole 40 MG Cap PO SCH (08:29)
[2019-05-18] MEDS ORDERED: Lisinopril 10 MG Tab ONE (08:33)
[2019-05-18] MEDS ORDERED: Hydrochlorothiazide 12.5 MG Cap ONE (08:33)
[2019-05-18] MEDS: LORazepam 1 MG Tab PO SCH ×6 (08:50→21:38)
[2019-05-18] MEDS ORDERED: Metoprolol Succinate 25 MG Tab.ER PO ONE (08:59)
[2019-05-18] MEDS ORDERED: Metoprolol Tartrate 25 MG Tab ONE (08:59)
[2019-05-18] MEDS ORDERED: Metoprolol Tartrate 25 MG Tab PO ONE ×2 (09:09→16:17)
[2019-05-18] MEDS ORDERED: Metoprolol Tartrate 5 MG/5 ML SDV ONE (09:24)
[2019-05-18] MEDS ORDERED: Metoprolol Tartrate 5 MG in Sodium Chloride 0.9% 50 ML IV ONE (09:40)
[2019-05-18] MEDS ORDERED: Metoprolol Tartrate 5 MG/5 ML SDV IVPUSH ONE (09:42)
[2019-05-18] MEDS: Ondansetron 4 MG Tab.DIS PO PRN ×3 (13:16→19:37)
[2019-05-18] MEDS: Venlafaxine 37.5 MG Cap.ER PO SCH (19:26)
[2019-05-19] MEDS: Sodium Chloride 0.9% 1,000 ML IV SCH ×4 (03:01→21:01)
[2019-05-19] MEDS ORDERED: Lisinopril 10 MG Tab ONE (07:28)
[2019-05-19] MEDS ORDERED: Hydrochlorothiazide 12.5 MG Cap ONE (07:28)
[2019-05-19] MEDS: Esomeprazole 40 MG Cap PO SCH (07:35)
[2019-05-19] MEDS: Ondansetron 4 MG Tab.DIS PO PRN ×3 (07:35→18:41)
[2019-05-19] MEDS: LORazepam 1 MG Tab PO SCH ×6 (07:42→23:13)
[2019-05-19] MEDS ORDERED: Metoprolol Tartrate 25 MG Tab ONE (09:42)
[2019-05-19] MEDS ORDERED: Metoprolol Tartrate 25 MG Tab PO ONE (09:49)
--- NOTE | 2019-05-19 12:26 | PCM.PN ---
- General Info Date of Service: 05/19/19 Functional Status: Reports: Tolerating Diet - Review of Systems General: Reports: No Symptoms HEENT: Reports: No Symptoms Pulmonary: Reports: No Symptoms Cardiovascular: Reports: No Symptoms Gastrointestinal: Reports: No Symptoms Genitourinary: Reports: No Symptoms Musculoskeletal: Reports: No Symptoms Skin: Reports: No Symptoms Neurological: Reports: No Symptoms Psychiatric: Reports: Anxiety - Patient Data Vitals - Most Recent: Last Vital Signs Temp 98.4 C H 05/19/19 12:00 Pulse 94 05/19/19 12:00 Resp 16 05/19/19 12:00 BP 137/98 H 05/19/19 12:00 Pulse Ox 96 05/19/19 12:00 Weight - Most Recent: 121.381 kg Lab Results Last 24 Hours: Laboratory Results - last 24 hr 05/18/19 05/19/19 05/19/19 Range/Units 08:45 08:45 08:45 WBC 11.7 H D (4.0-11.0) K/uL RBC 4.39 L (4.50-6.50) M/uL Hgb 13.4 D (13.0-18.0) g/dL Hct 38.9 L (40.0-54.0) % MCV 89 (76-96) fL MCH 30.5 (27.0-32.0) pg MCHC 34.4 (31.0-35.0) g/dL RDW 14.1 (11.0-16.0) % Plt Count 195 D (150-400) K/uL MPV 9.5 (6.0-10.0) fL Neut % (Auto) 76.5 H (45.0-70.0) % Lymph % (Auto) 14.3 L (20.0-40.0) % [place] % (Auto) 8.4 (3.0-10.0) % Eos % (Auto) 0.5 L (1.0-5.0) % Baso % (Auto) 0.3 (0.0-0.5) % Neut # (Auto) 8.94 H (2.00-7.50) K/uL Lymph # (Auto) 1.67 (1.50-4.00) K/uL [place] # (Auto) 0.98 H (0.20-0.80) K/uL Eos # (Auto) 0.06 (0.04-0.40) K/uL Baso # (Auto) 0.04 (0.02-0.10) K/uL Sodium 138 (136-145) mmol/L Potassium 3.5 (3.5-5.1) mmol/L Chloride 101 (98-107) mmol/L Carbon Dioxide 26.9 D (21.0-32.0) mmol/L Anion Gap 13.6 (5.0-15.0) mmol/L BUN 11 D (8-26) mg/dL Creatinine 0.99 (0.70-1.30) mg/dL Est Cr Clr Drug Dosing 94.22 mL/min Estimated GFR (MDRD) > 60 (>60) MLS/MIN BUN/Creatinine Ratio 11.1 (6-25) Glucose 139 H (74-100) mg/dL Calcium 7.7 L (8.5-10.1) mg/dL Urine Color Yellow Urine Appearance Cloudy (CLEAR) Urine pH 5.5 (5.0-8.0) Ur Specific [place] >= 1.030 (1.003-1.030) Urine Protein 30 H (NEGATIVE) mg/dL Urine Glucose (UA) Negative (NEGATIVE) mg/dL Urine Ketones 80 H (NEGATIVE) mg/dL Urine Occult Blood Negative (NEGATIVE) Urine Nitrite Negative (NEGATIVE) Urine Bilirubin Negative (NEGATIVE) Urine Urobilinogen 0.2 (0.2-1.0) E.U./dL Ur Leukocyte Esterase Negative (NEGATIVE) Urine RBC Not seen /HPF Urine WBC Not seen /HPF Ur Squamous Epith Cells Rare /HPF Amorphous Sediment Many /HPF Urine Bacteria Not seen /HPF Med Orders - Current: Current Medications Esomeprazole Magnesium (Nexium) 40 mg PO DAILY [facility] Last Admin: 05/19/19 07:35 Dose: 40 mg Sodium Chloride (Normal Saline) 1,000 mls @ 999 mls/hr IV ASDIRECTED [facility] Last Admin: 05/18/19 07:01 Dose: 500 mls/hr Multivitamins/Minerals 10 ml/Thiamine HCl 100 mg/ Dextrose/Sodium Chloride 1, 011 mls @ 500 mls/hr IV ONETIME [facility] Last Admin: 05/18/19 08:18 Dose: 500 mls/hr Sodium Chloride (Normal Saline) 1,000 mls @ 125 mls/hr IV ASDIRECTED TD Last Admin: 05/19/19 03:01 Dose: 125 mls/hr Lorazepam (Ativan) 0 mg PO ASDIRECTED TD; Protocol Last Admin: 05/19/19 12:15 Dose: 1 mg Non-Formulary Medication (Lisinopril/Hydrochlorothiazide [Lisinopril-Hctz 10- 12.5 Mg Tab]) 1 each PO DAILY TD Last Admin: 05/19/19 07:35 Dose: 1 each Ondansetron HCl (Zofran Odt) 4 mg PO Q6H PRN PRN Reason: Nausea Last Admin: 05/19/19 07:35 Dose: 4 mg Sodium Chloride (Saline Flush) 10 ml FLUSH ASDIRECTED PRN PRN Reason: Keep Vein Open Last Admin: 05/18/19 05:50 Dose: 10 ml Venlafaxine HCl (Effexor Xr) 37.5 mg PO BEDTIME TD Last Admin: 05/18/19 19:26 Dose: 37.5 mg Discontinued Medications Al Hydroxide/Mg Hydroxide (Mag-Al Plus) 30 ml PO ONETIME ONE Stop: 05/18/19 06:04 Last Admin: 05/18/19 06:19 Dose: 30 ml Hydrochlorothiazide (Hydrochlorothiazide) Confirm Administered Dose 12.5 mg .ROUTE .STK-MED ONE Stop: 05/18/19 08:34 Last Admin: 05/18/19 09:13 Dose: Not Given Hydrochlorothiazide (Hydrochlorothiazide) Confirm Administered Dose 12.5 mg .ROUTE .STK-MED ONE Stop: 05/19/19 07:29 Last Admin: 05/19/19 09:28 Dose: Not Given Metoprolol Tartrate 5 mg/ (Sodium Chloride) 55 mls @ 100 mls/hr IV ONETIME ONE Stop: 05/18/19 10:12 Last Admin: 05/19/19 09:28 Dose: Not Given Lisinopril (Prinivil) Confirm Administered Dose 10 mg .ROUTE .STK-MED ONE Stop: 05/18/19 08:34 Last Admin: 05/18/19 09:13 Dose: Not Given Lisinopril (Prinivil) Confirm Administered Dose 10 mg .ROUTE .STK-MED ONE Stop: 05/19/19 07:29 Last Admin: 05/19/19 09:28 Dose: Not Given Lorazepam (Ativan) 1 mg IVPUSH ONETIME ONE Stop: 05/18/19 06:03 Last Admin: 05/18/19 07:50 Dose: 1 mg Lorazepam (Ativan) Confirm Administered Dose 2 mg .ROUTE .STK-MED ONE Stop: 05/18/19 06:14 Last Admin: 05/18/19 06:19 Dose: Not Given Lorazepam (Ativan) Confirm Administered Dose 2 mg .ROUTE .STK-MED ONE Stop: 05/18/19 08:38 Last Admin: 05/18/19 08:30 Dose: Not Given Metoprolol Succinate (Toprol Xl) 25 mg PO ONETIME ONE Stop: 05/18/19 09:00 Metoprolol Tartrate (Lopressor) Confirm Administered Dose 25 mg .ROUTE .ST-MED ONE Stop: 05/18/19 09:00 Last Admin: 05/18/19 09:39 Dose: Not Given Metoprolol Tartrate (Lopressor) 25 mg PO ONETIME ONE Stop: 05/18/19 09:10 Last Admin: 05/18/19 09:10 Dose: 25 mg Metoprolol Tartrate (Lopressor) Confirm Administered Dose 5 mg .ROUTE .STK-MED ONE Stop: 05/18/19 09:25 Last Admin: 05/19/19 09:29 Dose: Not Given Metoprolol Tartrate (Lopressor) 5 mg IVPUSH ONETIME ONE Stop: 05/18/19 09:43 Last Admin: 05/18/19 09:40 Dose: 5 mg Metoprolol Tartrate (Lopressor) 25 mg PO ONETIME ONE Stop: 05/18/19 16:18 Last Admin: 05/18/19 16:19 Dose: 25 mg Metoprolol Tartrate (Lopressor) Confirm Administered Dose 25 mg .ROUTE .STK-MED ONE Stop: 05/19/19 09:43 Metoprolol Tartrate (Lopressor) 25 mg PO ONETIME ONE Stop: 05/19/19 09:50 Last Admin: 05/19/19 09:42 Dose: 25 mg Ondansetron HCl (Zofran) 4 mg IVPUSH ONETIME ONE Stop: 05/18/19 06:02 Last Admin: 05/18/19 06:07 Dose: 4 mg Ondansetron HCl (Zofran) Confirm Administered Dose 4 mg .ROUTE .STK-MED ONE Stop: 05/18/19 06:13 Last Admin: 05/18/19 06:10 Dose: Not Given Ondansetron HCl (Zofran Odt) 4 mg PO Q4H PRN PRN Reason: Nausea/Vomiting - Exam General: Alert, Oriented, Cooperative HEENT: Pupils Equal, Pupils Reactive, EOMI Neck: Supple Lungs: Clear to Auscultation, Normal Respiratory Effort Cardiovascular: Regular Rhythm, Tachycardia GI/Abdominal Exam: Normal Bowel Sounds, Soft, Non-Tender Back Exam: Normal Inspection Extremities: Normal Inspection - Problem List & Annotations (1) Hematemesis SNOMED Code(s): 9031799 Code(s): K92.0 - HEMATEMESIS Status: Resolved Priority: High Current Visit: Yes Onset Date: 08/23/14 Annotation/Comment:: 08/23/14 - Diarrhea, Vomiting, Melena, Hematemesis, Erosive esophagitis. (2) Alcohol abuse SNOMED Code(s): 00948290 Code(s): F10.10 - ALCOHOL ABUSE, UNCOMPLICATED Status: Acute Priority: High Current Visit: Yes Onset Date: 05/29/18 (3) Nausea & vomiting SNOMED Code(s): 53278408 Code(s): R11.2 - NAUSEA WITH VOMITING, UNSPECIFIED Status: Resolved Priority: High Current Visit: Yes Qualifiers: Vomiting type: hematemesis Qualified Code(s): K92.0 - Hematemesis; R11.0 - Nausea (4) Alcohol withdrawal SNOMED Code(s): 401549150 Code(s): F10.239 - ALCOHOL DEPENDENCE WITH WITHDRAWAL, UNSPECIFIED Status: Acute Priority: High Current Visit: Yes Qualifiers: Complication of substance-induced condition: uncomplicated Qualified Code(s ): F10.230 - Alcohol dependence with withdrawal, uncomplicated (5) Depression SNOMED Code(s): 24827179 Code(s): F32.9 - MAJOR DEPRESSIVE DISORDER, SINGLE EPISODE, UNSPECIFIED Status: Chronic Priority: High Current Visit: Yes Qualifiers: Active/Remission status: currently active Major depression episode severity : moderate (6) Leukocytosis, unspecified SNOMED Code(s): 648868177, 746498312 Code(s): D72.829 - ELEVATED WHITE BLOOD CELL COUNT, UNSPECIFIED Status: Resolved Priority: High Current Visit: Yes Qualifiers: Leukocytosis type: unspecified Qualified Code(s): D72.829 - Elevated white blood cell count, unspecified (7) Tachycardia SNOMED Code(s): 8891547 Code(s): R00.0 - TACHYCARDIA, UNSPECIFIED Status: Resolved Priority: High Current Visit: Yes (8) Tremors of nervous system SNOMED Code(s): 56071181 Code(s): R25.1 - TREMOR, UNSPECIFIED Status: Chronic Priority: High Current Visit: Yes - Problem List Review Problem List Initiated/Reviewed/Updated: Yes - My Orders Last 24 Hours: My Active Orders 05/18/19 20:00 Venlafaxine [Effexor XR] 37.5 mg PO BEDTIME 05/19/19 09:42 EKG 12 Lead [EK] Routine 05/19/19 10:00 EKG Documentation Completion [RC] ASDIRECTED - Plan Plan:: Patient has improved symptoms. Improved tachycardia. He has some resting tremors. Denies any epigastric tenderness - resolved. Patient to continue on current management and [facility] protocol.
[2019-05-19] MEDS: Venlafaxine 37.5 MG Cap.ER PO SCH (19:15)
[2019-05-19] MEDS ORDERED: Acetaminophen 325 MG Tab PO PRN (23:11)
[2019-05-19] MEDS: Acetaminophen 325 MG Tab ONE (23:14)
[2019-05-20] MEDS: Acetaminophen 325 MG Tab ONE (05:22)
[2019-05-20] MEDS ORDERED: Lisinopril 10 MG Tab ONE (07:18)
[2019-05-20] MEDS ORDERED: Hydrochlorothiazide 12.5 MG Cap ONE (07:19)
[2019-05-20 07:23] VITALS: BP 141/96; PULSE 99
[2019-05-20] MEDS: Esomeprazole 40 MG Cap PO SCH (07:24)
--- NOTE | 2019-05-20 08:26 | PCM.DCSUM1 ---
Discharge Summary - Discharge Data Discharge Date: 05/20/19 Discharge Disposition: Home, Self-Care 01 Condition: Stable - Referral to Home Health Primary Care Physician: Raul Ying MD - Discharge Diagnosis/Problem(s) (1) Hematemesis SNOMED Code(s): 5642895 ICD Code: K92.0 - HEMATEMESIS Status: Acute Priority: High Current Visit: Yes Onset Date: 08/23/14 Problem Details: 08/23/14 - Diarrhea, Vomiting, Melena, Hematemesis, Erosive esophagitis. (2) Alcohol abuse SNOMED Code(s): 17242895 ICD Code: F10.10 - ALCOHOL ABUSE, UNCOMPLICATED Status: Acute Priority: High Current Visit: Yes Onset Date: 05/29/18 (3) Nausea & vomiting SNOMED Code(s): 06490422 ICD Code: R11.2 - NAUSEA WITH VOMITING, UNSPECIFIED Status: Acute Priority: High Current Visit: Yes Qualifiers: Vomiting type: hematemesis Qualified Code(s): K92.0 - Hematemesis; R11.0 - Nausea (4) Alcohol withdrawal SNOMED Code(s): 759365949 ICD Code: F10.239 - ALCOHOL DEPENDENCE WITH WITHDRAWAL, UNSPECIFIED Status : Acute Priority: High Current Visit: Yes Qualifiers: Complication of substance-induced condition: uncomplicated Qualified Code(s ): F10.230 - Alcohol dependence with withdrawal, uncomplicated (5) Depression SNOMED Code(s): 42315077 ICD Code: F32.9 - MAJOR DEPRESSIVE DISORDER, SINGLE EPISODE, UNSPECIFIED Status: Chronic Priority: High Current Visit: Yes Qualifiers: Active/Remission status: currently active Major depression episode severity : moderate (6) Leukocytosis, unspecified SNOMED Code(s): 990906146, 147563654 ICD Code: D72.829 - ELEVATED WHITE BLOOD CELL COUNT, UNSPECIFIED Status: Acute Priority: High Current Visit: Yes Qualifiers: Leukocytosis type: unspecified Qualified Code(s): D72.829 - Elevated white blood cell count, unspecified (7) Tachycardia SNOMED Code(s): 2381265 ICD Code: R00.0 - TACHYCARDIA, UNSPECIFIED Status: Acute Priority: High Current Visit: Yes (8) Tremors of nervous system SNOMED Code(s): 10573403 ICD Code: R25.1 - TREMOR, UNSPECIFIED Status: Acute Priority: High Current Visit: Yes - Discharge Plan Home Medications: Home Meds Lisinopril/Hydrochlorothiazide [Lisinopril-Hctz 10-12.5 mg Tab] 1 each PO DAILY 08/24/15 [History] Venlafaxine [Effexor XR] 37.5 mg PO BEDTIME 04/19/18 [History] Esomeprazole [NexIUM] 40 mg PO DAILY 12/10/18 [History] Ondansetron [Zofran ODT] 4 mg PO Q6H PRN 12/10/18 [History] Forms: ED Department Discharge Referrals: Raul Ying MD [Primary Care Provider] - - Discharge Summary/Plan Comment DC Time >30 min.: No Discharge Summary/Plan Comment: Patient doing well and will be discharged home. Discussed outpatient alcohol abuse management but patient would like to defer and continue with his AA meetings and support. Discussed support and conservative management. Patient to f/u in clinic as directed. Anxiety medications to be prescribed. Counseled on alcohol cessation and management. - Patient Data Vitals - Most Recent: Last Vital Signs Temp 36.8 C 05/20/19 07:22 Pulse 99 05/20/19 07:22 Resp 18 05/20/19 07:22 BP 141/96 H 05/20/19 07:22 Pulse Ox 98 05/20/19 07:22 Weight - Most Recent: 121.381 kg Lab Results - Last 24 hrs: Laboratory Results - last 24 hr 05/18/19 05/19/19 05/19/19 Range/Units 08:45 08:45 08:45 WBC 11.7 H D (4.0-11.0) K/uL RBC 4.39 L (4.50-6.50) M/uL Hgb 13.4 D (13.0-18.0) g/dL Hct 38.9 L (40.0-54.0) % MCV 89 (76-96) fL MCH 30.5 (27.0-32.0) pg MCHC 34.4 (31.0-35.0) g/dL RDW 14.1 (11.0-16.0) % Plt Count 195 D (150-400) K/uL MPV 9.5 (6.0-10.0) fL Neut % (Auto) 76.5 H (45.0-70.0) % Lymph % (Auto) 14.3 L (20.0-40.0) % [place] % (Auto) 8.4 (3.0-10.0) % Eos % (Auto) 0.5 L (1.0-5.0) % Baso % (Auto) 0.3 (0.0-0.5) % Neut # (Auto) 8.94 H (2.00-7.50) K/uL Lymph # (Auto) 1.67 (1.50-4.00) K/uL [place] # (Auto) 0.98 H (0.20-0.80) K/uL Eos # (Auto) 0.06 (0.04-0.40) K/uL Baso # (Auto) 0.04 (0.02-0.10) K/uL Sodium 138 (136-145) mmol/L Potassium 3.5 (3.5-5.1) mmol/L Chloride 101 (98-107) mmol/L Carbon Dioxide 26.9 D (21.0-32.0) mmol/L Anion Gap 13.6 (5.0-15.0) mmol/L BUN 11 D (8-26) mg/dL Creatinine 0.99 (0.70-1.30) mg/dL Est Cr Clr Drug Dosing 94.22 mL/min Estimated GFR (MDRD) > 60 (>60) MLS/MIN BUN/Creatinine Ratio 11.1 (6-25) Glucose 139 H (74-100) mg/dL Calcium 7.7 L (8.5-10.1) mg/dL Urine Color Yellow Urine Appearance Cloudy (CLEAR) Urine pH 5.5 (5.0-8.0) Ur Specific [place] >= 1.030 (1.003-1.030) Urine Protein 30 H (NEGATIVE) mg/dL Urine Glucose (UA) Negative (NEGATIVE) mg/dL Urine Ketones 80 H (NEGATIVE) mg/dL Urine Occult Blood Negative (NEGATIVE) Urine Nitrite Negative (NEGATIVE) Urine Bilirubin Negative (NEGATIVE) Urine Urobilinogen 0.2 (0.2-1.0) E.U./dL Ur Leukocyte Esterase Negative (NEGATIVE) Urine RBC Not seen /HPF Urine WBC Not seen /HPF Ur Squamous Epith Cells Rare /HPF Amorphous Sediment Many /HPF Urine Bacteria Not seen /HPF Med Orders - Current: Current Medications Acetaminophen (Tylenol) 650 mg PO Q4H PRN PRN Reason: Pain Last Admin: 05/20/19 07:27 Dose: 650 mg Esomeprazole Magnesium (Nexium) 40 mg PO DAILY [facility] Last Admin: 05/20/19 07:24 Dose: 40 mg Sodium Chloride (Normal Saline) 1,000 mls @ 999 mls/hr IV ASDIRECTED TD Last Infusion: 05/18/19 09:01 Dose: Infused Multivitamins/Minerals 10 ml/Thiamine HCl 100 mg/ Dextrose/Sodium Chloride 1, 011 mls @ 500 mls/hr IV ONETIME TD Last Admin: 05/18/19 08:18 Dose: 500 mls/hr Sodium Chloride (Normal Saline) 1,000 mls @ 125 mls/hr IV ASDIRECTED TD Last Admin: 05/19/19 21:01 Dose: 125 mls/hr Lorazepam (Ativan) 0 mg PO ASDIRECTED TD; Protocol Last Admin: 05/19/19 23:13 Dose: 1 mg Non-Formulary Medication (Lisinopril/Hydrochlorothiazide [Lisinopril-Hctz 10- 12.5 Mg Tab]) 1 each PO DAILY TD Last Admin: 05/20/19 07:24 Dose: 1 each Ondansetron HCl (Zofran Odt) 4 mg PO Q6H PRN PRN Reason: Nausea Last Admin: 05/19/19 13:00 Dose: 4 mg Sodium Chloride (Saline Flush) 10 ml FLUSH ASDIRECTED PRN PRN Reason: Keep Vein Open Last Admin: 05/18/19 05:50 Dose: 10 ml Venlafaxine HCl (Effexor Xr) 37.5 mg PO BEDTIME TD Last Admin: 05/19/19 19:15 Dose: 37.5 mg Discontinued Medications Acetaminophen (Tylenol) Confirm Administered Dose 650 mg .ROUTE .STK-MED ONE Stop: 05/19/19 23:09 Last Admin: 05/20/19 05:22 Dose: Not Given Al Hydroxide/Mg Hydroxide (Mag-Al Plus) 30 ml PO ONETIME ONE Stop: 05/18/19 06:04 Last Admin: 05/18/19 06:19 Dose: 30 ml Hydrochlorothiazide (Hydrochlorothiazide) Confirm Administered Dose 12.5 mg .ROUTE .STK-MED ONE Stop: 05/18/19 08:34 Last Admin: 05/18/19 09:13 Dose: Not Given Hydrochlorothiazide (Hydrochlorothiazide) Confirm Administered Dose 12.5 mg .ROUTE .STK-MED ONE Stop: 05/19/19 07:29 Last Admin: 05/19/19 09:28 Dose: Not Given Hydrochlorothiazide (Hydrochlorothiazide) Confirm Administered Dose 12.5 mg .ROUTE .STK-MED ONE Stop: 05/20/19 07:20 Metoprolol Tartrate 5 mg/ (Sodium Chloride) 55 mls @ 100 mls/hr IV ONETIME ONE Stop: 05/18/19 10:12 Last Admin: 05/19/19 09:28 Dose: Not Given Lisinopril (Prinivil) Confirm Administered Dose 10 mg .ROUTE .STK-MED ONE Stop: 05/18/19 08:34 Last Admin: 05/18/19 09:13 Dose: Not Given Lisinopril (Prinivil) Confirm Administered Dose 10 mg .ROUTE .ST-MED ONE Stop: 05/19/19 07:29 Last Admin: 05/19/19 09:28 Dose: Not Given Lisinopril (Prinivil) Confirm Administered Dose 10 mg .ROUTE .ST-MED ONE Stop: 05/20/19 07:19 Lorazepam (Ativan) 1 mg IVPUSH ONETIME ONE Stop: 05/18/19 06:03 Last Admin: 05/18/19 07:50 Dose: 1 mg Lorazepam (Ativan) Confirm Administered Dose 2 mg .ROUTE .ST-MED ONE Stop: 05/18/19 06:14 Last Admin: 05/18/19 06:19 Dose: Not Given Lorazepam (Ativan) Confirm Administered Dose 2 mg .ROUTE .STK-MED ONE Stop: 05/18/19 08:38 Last Admin: 05/18/19 08:30 Dose: Not Given Metoprolol Succinate (Toprol Xl) 25 mg PO ONETIME ONE Stop: 05/18/19 09:00 Metoprolol Tartrate (Lopressor) Confirm Administered Dose 25 mg .ROUTE .STK-MED ONE Stop: 05/18/19 09:00 Last Admin: 05/18/19 09:39 Dose: Not Given Metoprolol Tartrate (Lopressor) 25 mg PO ONETIME ONE Stop: 05/18/19 09:10 Last Admin: 05/18/19 09:10 Dose: 25 mg Metoprolol Tartrate (Lopressor) Confirm Administered Dose 5 mg .ROUTE .STK-MED ONE Stop: 05/18/19 09:25 Last Admin: 05/19/19 09:29 Dose: Not Given Metoprolol Tartrate (Lopressor) 5 mg IVPUSH ONETIME ONE Stop: 05/18/19 09:43 Last Admin: 05/18/19 09:40 Dose: 5 mg Metoprolol Tartrate (Lopressor) 25 mg PO ONETIME ONE Stop: 05/18/19 16:18 Last Admin: 05/18/19 16:19 Dose: 25 mg Metoprolol Tartrate (Lopressor) Confirm Administered Dose 25 mg .ROUTE .STK-MED ONE Stop: 05/19/19 09:43 Last Admin: 05/19/19 18:48 Dose: Not Given Metoprolol Tartrate (Lopressor) 25 mg PO ONETIME ONE Stop: 05/19/19 09:50 Last Admin: 05/19/19 09:42 Dose: 25 mg Ondansetron HCl (Zofran) 4 mg IVPUSH ONETIME ONE Stop: 05/18/19 06:02 Last Admin: 05/18/19 06:07 Dose: 4 mg Ondansetron HCl (Zofran) Confirm Administered Dose 4 mg .ROUTE .STK-MED ONE Stop: 05/18/19 06:13 Last Admin: 05/18/19 06:10 Dose: Not Given Ondansetron HCl (Zofran Odt) 4 mg PO Q4H PRN PRN Reason: Nausea/Vomiting Last Admin: 05/19/19 18:41 Dose: 4 mg
== END 2019-05-20 11:08 | disposition home or self-care (01) ==
LOC: LB.ED 04:59 → LB.MS 06:47
PROVIDERS: ADMIT Family Medicine; ATTEND Family Medicine
DX: K92.0 Hematemesis (principal); F10.239 Alcohol dependence with withdrawal, unspecified; F32.9 Major depressive disorder, single episode, unspecified; D72.829 Elevated white blood cell count, unspecified; R00.0 Tachycardia, unspecified; R25.1 Tremor, unspecified; I10 Essential (primary) hypertension; K21.9 Gastro-esophageal reflux disease without esophagitis; F41.9 Anxiety disorder, unspecified; Z79.899 Other long term (current) drug therapy
CPT/HCPCS: 36415; 80048; 80053; 81001; 83605; 84484; 85025; 93005; 96361; 96365; 96366; 96374; 96375; 96376; 99284-25; A9270-GY; G0378; G0480; J2060; J2405; J3411; J3490; J7030

== ENCOUNTER 2019-07-17 15:15 | Observation (INO) | payer BC, MEDICAID ==
[2019-07-17] MEDS ORDERED: Calcium Carbonate 500 MG Tab.Chew PO PRN ×2 (16:13→18:19)
[2019-07-17] MEDS: MVI IV SCH ×5 (16:46)
[2019-07-17] MEDS: VITAMIN K IV SCH ×5 (16:46)
[2019-07-17] MEDS: FOLIC ACID IV SCH ×5 (16:46)
[2019-07-17] MEDS: THIAMINE IV SCH ×5 (16:46)
[2019-07-17] MEDS: [UNRECOGNIZED DRUG - OTHER] IV SCH ×5 (16:46)
[2019-07-17] MEDS ORDERED: Ondansetron 4 MG/2 ML SDV ONE (16:57)
[2019-07-17] MEDS: Ondansetron 4 MG/2 ML SDV IVPUSH SCH ×2 (17:00→23:16)
[2019-07-17] MEDS: LORazepam 2 MG/ML SDV IVPUSH PRN ×3 (18:00→23:15)
--- NOTE | 2019-07-17 18:15 | HP ---
REASON FOR ADMISSION: Alcohol abuse with intoxication. HISTORY: This unfortunate 49-year-old man who is well known to this hospital for multiple previous episodes of admissions for alcohol intoxication and/or alcohol withdrawal, was brought in by the police today after they were called to do a welfare check on him by someone who was concerned about his well-being. They apparently arrived at his house and noticed that he obviously appeared intoxicated. He was therefore brought in for a welfare check. He states that he has been drinking approximately 1 L of hard liquor per day for at least the past 2 weeks every day even though he states he has been going to work sober and drinking afterwards. He was brought in with slightly slurred speech and the smell of alcohol on his breath, so all his history has to be of questionable reliability. He does state that he has been coughing over the past couple of days, but denies any fever, chills, or shortness of breath. He has had some abdominal pain off and on and this has been a problem "for a long time." He has vomited off and on as well after drinking excessively, but none in the last 24 hours. His last drink was earlier this afternoon. He does state that he wants to get help for his admitted alcoholism but that he has been to rehab twice in the past, each time for a month and promptly relapsed. As mentioned above, he has been admitted here on several occasion for issues related to his alcoholism. He does state that he would like to get help to quit drinking, but he keeps making comments to the effect that he is having a hard time with cessation of drinking. PAST MEDICAL HISTORY: 1. Alcohol addiction with history of withdrawal. 2. H pylori. 3. History of hematemesis and upper GI bleed. 4. Depression. 5. Hypertension. MEDICATIONS: (He states he has not taken any for a few days now.) This includes tramadol 50 mg q.6 hours p.r.n., venlafaxine ER 75 mg 1 p.o. daily, lisinopril and hydrochlorothiazide 10/12.5 mg 1 p.o. daily, esomeprazole 40 mg p.o. daily. ALLERGIES: NONE TO MEDICATIONS. SOCIAL HISTORY: He lives alone. 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 He is , with 2 children. He chews tobacco, but denies smoking. He denies illicit drug use other than alcohol. REVIEW OF SYSTEMS: Pertinent positives and negatives as listed in the HPI. PHYSICAL EXAMINATION: GENERAL: He is pleasant. He looks disheveled, but he is in no acute distress. In fact, he has a smell of alcohol on his breath. VITAL SIGNS: He is afebrile. Heart rate is 105 to 115, blood pressure 143/107, respiratory rate is 20, O2 sats 97% on room air. HEENT: TMs are normal. He has no conjunctivitis or scleral icterus. His oropharynx does not have any significant erythema or exudates. He has some crusting and dry skin about his lips. NECK: Supple. No adenopathy. There is no JVD. CHEST: Clear to auscultation. CARDIAC: Regular rate without murmur. ABDOMEN: Obese and soft. He does have some mild tenderness to deep palpation across his abdomen, but this is poorly localized. There is no guarding or rebound. EXTREMITIES: Normal pulses. No edema. No deformities. SKIN: No rashes. NEUROLOGIC: He moves all 4 extremities equally well. Sensation is normal to crude touch. Station and gait were not tested. Deep tendon reflexes symmetrical in both lower extremities. He has no tremor at this time and no asterixis. IMPRESSION: Alcohol dependence and intoxication. PLAN: He will be admitted to the hospital for observation. He will be placed under a [facility] protocol for withdrawal. He will receive Ativan IV as needed. We will hydrate him initially with 1 L of normal saline containing multivitamins, thiamin, and magnesium sulfate per protocol. I will check routine chemistries and CBC, urine toxicology screen, and blood alcohol. These are all pending at this time. We will check a chest x- ray, and I will get a flu swab as he is coughing quite a bit complaining of congestion and not feeling well. The patient understands and agrees with this. All questions were answered. SETH CÉSAR
--- NOTE | 2019-07-17 18:18 | ER ---
REASON FOR ADMISSION: Alcohol abuse with intoxication. HISTORY: This unfortunate 49-year-old man who is well known to this hospital for multiple previous episodes of admissions for alcohol intoxication and/or alcohol withdrawal, was brought in by the police today after they were called to do a welfare check on him by someone who was concerned about his well-being. They apparently arrived at his house and noticed that he obviously appeared intoxicated. He was therefore brought in for a welfare check. He states that he has been drinking approximately 1 L of hard liquor per day for at least the past 2 weeks every day even though he states he has been going to work sober and drinking afterwards. He was brought in with slightly slurred speech and the smell of alcohol on his breath, so all his history has to be of questionable reliability. He does state that he has been coughing over the past couple of days, but denies any fever, chills, or shortness of breath. He has had some abdominal pain off and on and this has been a problem "for a long time." He has vomited off and on as well after drinking excessively, but none in the last 24 hours. His last drink was earlier this afternoon. He does state that he wants to get help for his admitted alcoholism but that he has been to rehab twice in the past, each time for a month and promptly relapsed. As mentioned above, he has been admitted here on several occasion for issues related to his alcoholism. He does state that he would like to get help to quit drinking, but he keeps making comments to the effect that he is having a hard time with cessation of drinking. PAST MEDICAL HISTORY: 1. Alcohol addiction with history of withdrawal. 2. H pylori. 3. History of hematemesis and upper GI bleed. 4. Depression. 5. Hypertension. MEDICATIONS: (He states he has not taken any for a few days now.) This includes tramadol 50 mg q.6 hours p.r.n., venlafaxine ER 75 mg 1 p.o. daily, lisinopril and hydrochlorothiazide 10/12.5 mg 1 p.o. daily, esomeprazole 40 mg p.o. daily. ALLERGIES: NONE TO MEDICATIONS. SOCIAL HISTORY: He lives alone. He is currently employed at a local [employer]. He is , with 2 children. He chews tobacco, but denies smoking. He denies illicit drug use other than alcohol. REVIEW OF SYSTEMS: Pertinent positives and negatives as listed in the HPI. PHYSICAL EXAMINATION: GENERAL: He is pleasant. He looks disheveled, but he is in no acute distress. In fact, he has a smell of alcohol on his breath. VITAL SIGNS: He is afebrile. Heart rate is 105 to 115, blood pressure 143/107, respiratory rate is 20, O2 sats 97% on room air. HEENT: TMs are normal. He has no conjunctivitis or scleral icterus. His oropharynx does not have any significant erythema or exudates. He has some crusting and dry skin about his lips. NECK: Supple. No adenopathy. There is no JVD. CHEST: Clear to auscultation. CARDIAC: Regular rate without murmur. ABDOMEN: Obese and soft. He does have some mild tenderness to deep palpation across his abdomen, but this is poorly localized. There is no guarding or rebound. EXTREMITIES: Normal pulses. No edema. No deformities. SKIN: No rashes. NEUROLOGIC: He moves all 4 extremities equally well. Sensation is normal to crude touch. Station and gait were not tested. Deep tendon reflexes symmetrical in both lower extremities. He has no tremor at this time and no asterixis. IMPRESSION: Alcohol dependence. PLAN: He will be admitted to the hospital for observation. He will be placed under a [facility] protocol for withdrawal. He will receive Ativan 2 mg IV every 4 hours as needed. We will hydrate him initially with 1 L of normal saline containing multivitamins, thiamin, and magnesium sulfate per protocol. I will check routine chemistries and CBC, urine toxicology screen, and blood alcohol. These are all pending at this time. We will check a chest x- ray, and I will get a flu swab as he is coughing quite a bit complaining of congestion and not feeling well. The patient understands and agrees with this. All questions were answered. SETH /[id number]
[2019-07-18] MEDS: LORazepam 2 MG/ML SDV IVPUSH PRN ×6 (04:18→22:23)
[2019-07-18] MEDS: Acetaminophen 325 MG Tab PO PRN ×2 (04:19→21:46)
[2019-07-18] MEDS: Ondansetron 4 MG/2 ML SDV IVPUSH SCH ×4 (04:19→22:23)
[2019-07-18] MEDS: MVI IV SCH ×5 (12:17)
[2019-07-18] MEDS: FOLIC ACID IV SCH ×5 (12:17)
[2019-07-18] MEDS: VITAMIN K IV SCH ×5 (12:17)
[2019-07-18] MEDS: THIAMINE IV SCH ×5 (12:17)
[2019-07-18] MEDS: [UNRECOGNIZED DRUG - OTHER] IV SCH ×5 (12:17)
--- NOTE | 2019-07-18 13:28 | PN ---
DATE OF VISIT: SUBJECTIVE: The patient is awake and alert this morning and he is appropriate. He had an uneventful night. He did receive a couple of doses of Ativan last night and he has been monitored overnight. He is showing no signs of acute alcohol withdrawal at this time. He does feels that his stomach is still "queasy." OBJECTIVE: VITAL SIGNS: He still got some tachycardia with heart rate of 131, his blood pressure is 151/106, O2 sats are normal. He is afebrile. CHEST: Clear to auscultation. CARDIAC: Regular rate without murmur. ABDOMEN: Obese, but nontender. NEUROLOGIC: He does not have any shakes or any asterixis this morning. IMPRESSION: Stable with persistent tachycardia, probably a manifestation of some early withdrawal symptoms. PLAN: We will continue. He will receive another banana bag IV and I will advance his diet as tolerated. He will receive Ativan as needed per [facility] protocol. A very long forthright conversation was undertaken regarding his long-term recovery and plans. Jerald has been back and forth here on numerous occasions and I felt it was necessary to be very firm with him and painted him a very realistic picture regarding his long-term chances of recovery without successful rehab. I was very firm with him, but factual at the same time. He seemed to appreciate that and I left the room with advice for him to strongly consider rehab therapy and think about our discussion in terms of the reality of his overall prognosis without adequate treatment and dedication to recovery program. He seems to accept this. 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 We will plan accordingly regarding rehab depending once he has had time to think about things and we will have another discussion. SETH /[id number]
--- NOTE | 2019-07-18 18:07 | CR ---
Date of Service: 07/17/19 Clinical Data: cough PA AND LATERAL CHEST: No priors. The patient has taken a poor inspiration. The heart size is normal. The lungs are clear. No pneumothorax. No pleural effusions. There is degenerative disk disease at multiple levels in the thoracic spine. There are partial compression fractures of multiple mid and lower thoracic vertebrae. No other significant findings. [id number] [facility]
[2019-07-19] MEDS: Ondansetron 4 MG/2 ML SDV IVPUSH SCH ×2 (03:09→09:53)
[2019-07-19] MEDS: LORazepam 2 MG/ML SDV IVPUSH PRN ×2 (03:10→06:07)
[2019-07-19] MEDS: Acetaminophen 325 MG Tab PO PRN (07:56)
[2019-07-19 08:51] VITALS: PULSE 100
[2019-07-19] MEDS ORDERED: Pantoprazole 40 MG Vial IVPUSH ONE (08:57)
[2019-07-19] MEDS ORDERED: Hydrochlorothiazide 12.5 MG Cap PO SCH (09:00)
[2019-07-19] MEDS ORDERED: Lisinopril 10 MG Tab PO SCH (09:00)
[2019-07-19 09:56] VITALS: BP 149/107
--- NOTE | 2019-07-19 10:59 | PCM.DCSUM1 ---
Discharge Summary - Discharge Data Discharge Date: 07/19/19 Discharge Disposition: Home, Self-Care 01 Condition: Good - Referral to Home Health Primary Care Physician: PCP None - Discharge Diagnosis/Problem(s) (1) Alcohol abuse SNOMED Code(s): 57818879 ICD Code: F10.10 - ALCOHOL ABUSE, UNCOMPLICATED Status: Chronic Priority : High Current Visit: No Onset Date: 05/29/18 (2) Nausea & vomiting SNOMED Code(s): 07534588 ICD Code: R11.2 - NAUSEA WITH VOMITING, UNSPECIFIED Status: Resolved Priority: High Current Visit: No Qualifiers: Vomiting type: hematemesis Qualified Code(s): K92.0 - Hematemesis; R11.0 - Nausea (3) Tachycardia SNOMED Code(s): 5640278 ICD Code: R00.0 - TACHYCARDIA, UNSPECIFIED Status: Resolved Priority: High Current Visit: No - Discharge Plan Home Medications: Home Meds Lisinopril/Hydrochlorothiazide [Lisinopril-Hctz 10-12.5 mg Tab] 1 each PO DAILY 08/24/15 [History] Esomeprazole [NexIUM] 40 mg PO DAILY 12/10/18 [History] LORazepam [Ativan] 1 mg PO ASDIRECTED PRN #30 tablet 05/20/19 [Rx] Venlafaxine HCl [Venlafaxine ER] 75 mg PO DAILY #60 cap.er.24h 05/20/19 [Rx] traMADol [Ultram] 50 mg PO Q6H PRN #28 tab 05/20/19 [Rx] - Discharge Summary/Plan Comment DC Time >30 min.: No Discharge Summary/Plan Comment: Counseled on close f/u and rtc on Mon or for f/u. Discussed AA and plan for outpatient treatment. Patient states he is unable to go to inpatient due to work and other responsibilities. We will discharge today and patient will go to AA meeting lorenzo. He will contact his sponsor and other supportive community members and friends for assistance. Patient understands the risks of excessive alcoholism. F/u as directed. - General Info Date of Service: 07/19/19 Subjective Update: Patient states he has improved greatly but continues to have abdominal discomfort and tenderness. He has been able to eat but has GERD when he does. Denies tremors but does appear slightly anxious. - Review of Systems General: Reports: No Symptoms HEENT: Reports: No Symptoms Pulmonary: Reports: No Symptoms Cardiovascular: Reports: No Symptoms Gastrointestinal: Reports: Decreased Appetite, Nausea Genitourinary: Reports: No Symptoms Musculoskeletal: Reports: No Symptoms Skin: Reports: No Symptoms Neurological: Reports: No Symptoms Psychiatric: Reports: Anxiety - Patient Data Vitals - Most Recent: Last Vital Signs Temp 36.9 C 07/19/19 07:40 Pulse 100 07/19/19 07:40 Resp 16 07/19/19 07:40 BP 149/107 H 07/19/19 09:53 Pulse Ox 97 07/19/19 07:40 Weight - Most Recent: 117.934 kg I&O - Last 24 hours: Intake & Output 07/18/19 07/19/19 07/19/19 22:59 06:59 14:59 Intake Total 1720 1300 Output Total 650 900 Balance 1070 400 MEHNAZ Results - Last 24 hrs: Microbiology 07/17/19 18:00 MRSA Surveillance Culture - Final Nares, Right NO MRSA ISOLATED Med Orders - Current: Current Medications Acetaminophen (Tylenol) 650 mg PO Q4H PRN PRN Reason: Pain Last Admin: 07/19/19 07:56 Dose: 650 mg Calcium Carbonate/Glycine (Tums) 1,000 mg PO Q2HR PRN PRN Reason: Indigestion Last Admin: 07/17/19 20:15 Dose: 1,000 mg Hydrochlorothiazide (Hydrochlorothiazide) 12.5 mg PO DAILY [facility] Last Admin: 07/19/19 09:53 Dose: 12.5 mg Multivitamins/Minerals 10 ml/Folic Acid 0.1 mg/ Thiamine HCl 100 mg/ Magnesium Sulfate 2 gm/ Sodium Chloride 1,015.02 mls @ 250 mls/hr IV DAILY TD Last Admin: 07/18/19 12:17 Dose: 250 mls/hr Lisinopril (Prinivil) 10 mg PO DAILY [facility] Last Admin: 07/19/19 09:53 Dose: 10 mg Lorazepam (Ativan) 1 mg IVPUSH Q2H PRN; Protocol PRN Reason: Withdrawal Symptoms Last Admin: 07/19/19 06:07 Dose: 1 mg Ondansetron HCl (Zofran) 4 mg IVPUSH Q6H [facility] Last Admin: 07/19/19 09:53 Dose: 4 mg Discontinued Medications Calcium Carbonate/Glycine (Tums) 500 mg PO Q2HR PRN PRN Reason: Indigestion Ondansetron HCl (Zofran) Confirm Administered Dose 4 mg .ROUTE .STK-MED ONE Stop: 07/17/19 16:58 Last Admin: 07/17/19 17:24 Dose: Not Given Pantoprazole Sodium (Protonix Iv) 40 mg IVPUSH ONETIME ONE Stop: 07/19/19 08:58 Last Admin: 07/19/19 09:53 Dose: 40 mg - Exam General: Reports: Alert, Oriented HEENT: Reports: Pupils Equal, Pupils Reactive, EOMI Neck: Reports: Supple Lungs: Reports: Clear to Auscultation, Normal Respiratory Effort Cardiovascular: Reports: Regular Rate, Regular Rhythm GI/Abdominal Exam: Normal Bowel Sounds Back Exam: Reports: Normal Inspection Skin: Reports: Warm, Dry, Intact
== END 2019-07-19 12:20 | disposition home or self-care (01) ==
LOC: LB.ED 15:15 → LB.MS 16:09
PROVIDERS: ADMIT Surgery; ATTEND Surgery
DX: F10.129 Alcohol abuse with intoxication, unspecified (principal); K92.0 Hematemesis; R00.0 Tachycardia, unspecified; I10 Essential (primary) hypertension; F32.9 Major depressive disorder, single episode, unspecified; F17.220 Nicotine dependence, chewing tobacco, uncomplicated; Z79.899 Other long term (current) drug therapy
CPT/HCPCS: 36415; 71046; 80053; 81003; 82150; 83690; 83735; 85025; 93005; 96374; 96375; 96376; 99285-25; A9270-GY; C9113; G0378; G0480; J2060; J2405; J3411; J3475; J3490; J7030

== ENCOUNTER 2020-07-11 10:48 | Emergency (ER) | payer BC, MEDICAID ==
[2020-07-11 11:22] VITALS: BP 149/94; PULSE 104
[2020-07-11] MEDS: Sodium Chloride 0.9% 1,000 ML IV ONE (12:00)
[2020-07-11] MEDS: Ondansetron 4 MG/2 ML SDV IVPUSH PRN (14:30)
[2020-07-11] MEDS: LORazepam 2 MG/ML SDV IVPUSH ONE ×2 (15:20→16:08)
--- NOTE | 2020-07-11 18:36 | ER ---
REASON FOR ADMISSION: Alcoholism with acute intoxication and desire for sobriety. HISTORY: This 50-year-old man is well known here for his multiple visits related to his alcoholism and numerous attempts at rehab and detox in the past. He apparently states that he has been drinking at least a L of hard liquor daily for the past 3 weeks. This is a similar scenario that he has fainted in the past when he has presented here. He states that he had his last drink just prior to coming to the emergency room. He presented with some slurring of speech and the odor of alcohol on his breath. He was brought in by a friend, whose is a big believer in Alcoholics Anonymous. He has not had any loss of consciousness. He denies any seizures or shakiness at this time. His last admission here was last July when he was admitted under similar circumstances. He went through detox while in hospital here and was treated with IV fluid hydration and treated under [facility] protocol with saline, vitamins, thiamine and magnesium sulfate. He was hospitalized here for 3 days and discharged with plans for outpatient treatment and regular attendance at . By his own admission, he states that he has only lasted no more than a few days in inpatient treatment and has left AMA in the past. Previously, he states that he had been hospitalized on 2 occasions for at least a month, but admits that he promptly relapsed following discharge. He is somewhat tearful now and adamant that he wants to get well and get help and achieve lasting sobriety. PAST MEDICAL HISTORY: 1. Alcohol addiction with history of withdrawal. 2. History of H pylori. 3. History of hematemesis and upper GI bleed. 4. Depression. 5. Hypertension. MEDICATIONS: Include: 1. Lisinopril and hydrochlorothiazide 10-12.5 mg tablets 1 p.o. daily. 2. Venlafaxine HCL 75 mg p.o. daily. 3. Nexium 40 mg p.o. daily. ALLERGIES: NONE TO MEDICATIONS. REVIEW OF SYSTEMS: Pertinent positives and negatives as listed in the HPI. PHYSICAL EXAMINATION: GENERAL: He is not agitated at this time. He does seem to answer questions appropriately. His speech is minimally slurred. He does have a strong odor of alcohol on his breath. He is not shaking or tremulous. VITAL SIGNS: Heart rate is 104, blood pressure 149/94, respirations 16, O2 sats 97%. HEENT: No scleral icterus. No conjunctivitis. Oropharynx is normal. NECK: No adenopathy or JVD. No thyromegaly. CHEST: Clear to auscultation with no wheezes, rhonchi, or rales. CARDIAC: Regular rate without murmur. ABDOMEN: Obese, soft, and nontender. I cannot feel any hepatomegaly or splenomegaly. EXTREMITIES: Normal pulses. No edema. No deformities. SKIN: No rashes. NEUROLOGIC: He moves all 4 extremities equally well. His deep tendon reflexes in the lower extremities are symmetrical and brisk. Sensation is intact to crude touch. Cranial nerves 2 through 12 are intact. LABORATORY DATA: His CBC is unremarkable. He has no leukocytosis and his hemoglobin is 16.6. His platelet count is 176,000. His electrolytes are normal. He does have an anion gap of 19.4, which is mildly elevated. His glucose is 145 (nonfasting), calcium is 7.7, albumin is 3.3. His AST is mildly elevated at 72, but his ALT and alkaline phosphatase and total bilirubin are all normal. A urine toxicology screen was negative. His blood alcohol level was 417. He did have SARS-CoV-2 RNA done and this was negative. IMPRESSION: Alcoholism with acute intoxication and desire for sobriety. PLAN: We were able to contact [facility] in [place], [place], and they are agreeable to taking him for detox and rehab placement. The patient indicates that he is willing to comply with this plan. He agrees with this completely. This did take a couple of hours while in the emergency room. He did appear somewhat anxious and therefore was given 1 mg of Valium IV following 1 L of normal saline IV while waiting in the emergency department. His friend, who brought him to the emergency room, was willing to transport him to [place], and they agree to accept him. He agrees with this plan. All questions were answered. KOFFI/ELODIA /[id number]
== END 2020-07-11 16:15 | disposition other institution (70) ==
LOC: LB.ED 10:48
DX: F10.229 Alcohol dependence with intoxication, unspecified (principal); Y90.8 Blood alcohol level of 240 mg/100 ml or more; F32.9 Major depressive disorder, single episode, unspecified; I10 Essential (primary) hypertension; Z79.899 Other long term (current) drug therapy; Z20.828 Contact with and (suspected) exposure to other viral communicable diseases
CPT/HCPCS: 36415; 80053; 80307; 85025; 87635; 96374; 96375; 96376; 99284; J2060; J2405; J7030; U0002